=== PATIENT | male | born 1985 ===

== ENCOUNTER 2020-03-02 12:10 | Outpatient (REF) | payer MEDICAID, SELFPAY | END 2020-03-02 12:11 | disposition home or self-care (01) | LOC: HO.LAB 12:10 | PROVIDERS: Visit Provider Internal Medicine | DX: Z20.828 Contact with and (suspected) exposure to other viral communicable diseases (principal) | CPT/HCPCS: C9803; U0003 ==

== ENCOUNTER 2020-03-03 01:32 | Emergency (ER) | payer MEDICAID, SELFPAY ==
--- NOTE | 2020-03-03 02:10 | ED_ITS ---
HPI - General Adult General Chief complaint: General Medical Stated complaint: ?Fever Time Seen by Provider: 03/03/20 02:09 Source: patient Mode of arrival: ambulatory Limitations: no limitations History of Present Illness HPI narrative: This is a 35-year-old male who presents with complaints of having sprayed alcohol around his house to clean up and then states that it was irritating his lungs and he had a sort. Of dry cough that has since resolved but then felt that he had an elevated temperature last night and took some Tylenol prior to presenting here in the emergency department. On review of documentation patient was swabbed here yesterday for COVID-19. He is concerned that he has neighbors on either side of him. Otherwise, he denies any other acute complaints. Related Data Home Medications Medication Instructions Recorded Confirmed No Known Home Meds 03/03/20 03/03/20 Allergies Allergy/AdvReac Type Severity Reaction Status Date / Time No Known Allergies Allergy Verified 03/03/20 01:39 Review of Systems Review of Systems: Pertinent positives and negatives as stated in HPI 10 point review of systems otherwise negative. PMFSH Past Medical History Source: nursing notes reviewed Social History Social History Alcohol intake: never Smoked in Last 30 Days: No Use of substances other than those prescribed or required for medical reasons: No Advance Directives: No Physical Exam Vital Signs: Vital Signs: Last Vital Signs Temp 99.7 F 03/03/20 02:18 Pulse 96 03/03/20 02:18 Resp 18 03/03/20 02:18 BP 148/84 H 03/03/20 02:18 Pulse Ox 95 03/03/20 02:18 Body Mass Index 32.3 VITAL SIGNS: Reviewed. GENERAL: Well developed, well nourished, in no acute distress. HEAD: Normocephalic/atraumatic, EYES: PERRLA, EOMI intact without pain, no nystagmus/pallor/icterus noted EARS: Ext canals without abnormality, TMs non-bulging and non-erythematous NOSE: Nares patent bilateral OROPHARYNX: no oral lesions noted, posterior pharynx clear and non-erythematous without noted tonsillar enlargement/erythema/exudates NECK: Supple, no adenopathy LUNGS: Normal breath sounds. No adventitious sounds or accessory muscle use. SpO2<95> CARDIOVASCULAR: Regular rate and rhythm without noted murmurs, no JVD or lower extremity edema. ABDOMEN: Soft, non-tender, non-distended with bowel sounds. No rigidity. No guarding. No palpable masses or hernias noted MUSCULOSKELETAL: No tenderness, deformities, or effusions noted on gross inspection. EXTREMITIES: No cyanosis, clubbing or edema. SKIN: Inspection of the skin reveals no rashes, ulcerations, jaundice, pallor, or petechiae. NEUROLOGIC: Alert and oriented x 4. Strength and sensation to light touch were grossly intact x 4. Course Course Course Narrative: This is a 35-year-old male with history and clinical presentation consistent with viral syndrome and awaiting COVID-19 testing. Patient is not complaining of shortness of breath and is not noted to be hypoxic or currently febrile. He was encouraged to return home remain self quarantined and that he would be called with his COVID-19 results. He was also counseled on cutting people's hair within his home. Discharge Plan Discharge Clinical Impression: Viral syndrome Patient Disposition: Home, Self-Care Instructions: Viral Syndrome (ED) Additional Instructions: 1. DEBE PERMANECER EN CUARENTENA HASTA QUE LE LLAMEN CON LOS RESULTADOS DE SHARMA PRUEBA COVID-19. 2. TYLENOL 1000 MG, ORALMENTE, CADA 6 HORAS SEG?N SE NECESITE PARA TEMPERATURAS MAYORES DE 100.4 O NANCY CORPORALES. NO EXCEDA 4000 MG DENTRO DE LAS 24 HORAS. 3. IBUPROFEN 400 MG, ORALMENTE CON LECHE O ALIMENTOS, CADA 6 HORAS SEG?N SE NECESITE PARA TEMPERATURAS MAYORES A 100.4 O NANCY CORPORALES. EL PACIENTE Y / O LA MERRICK RECONOCEN LA COMPRENSI?N DE LOS RESULTADOS (SEG?N SEA APLICABLE), EL DIAGN?STICO, EL PLAN DE TRATAMIENTO, LA NECESIDAD DE SEGUIMIENTO Y LOS S?NTOMAS QUE DEBER?AN IMPONER UN REGRESO A LA PERCY DE URGENCIAS. Prescriptions: No Action No Known Home Meds RF: 0 Referrals: Physician,Unknown [Primary Care Provider] - 2 days Print Language: Maori
[2020-03-03 02:18] VITALS: BP 148/84; PULSE 96; RESP 18; TEMP 37.6; O2SAT 95; BMI 32.3
== END 2020-03-03 02:40 | disposition home or self-care (01) ==
PROVIDERS: Emergency Provider Student in an Organized Health Care Education/Training Program
DX: B34.9 Viral infection, unspecified (principal); R50.9 Fever, unspecified; Z20.828 Contact with and (suspected) exposure to other viral communicable diseases
CPT/HCPCS: 99283; 99284

== ENCOUNTER 2020-03-23 10:17 | Emergency (ER) | payer MEDICAID, SELFPAY ==
[2020-03-23 10:33] VITALS: BP 139/87; PULSE 94; RESP 17; TEMP 37.3; O2SAT 96; BMI 39.4
[2020-03-23 10:42] VITALS: BP 136/87; PULSE 96; RESP 17; TEMP 37.3; O2SAT 96
--- NOTE | 2020-03-23 11:48 | ECG_ITS ---
Test Reason : MEDICAL CLEARANCE Blood Pressure : / mmHG Vent. Rate : 089 BPM Atrial Rate : 089 BPM P-R Int : 146 ms QRS Dur : 086 ms QT Int : 360 ms P-R-T Axes : 070 067 056 degrees QTc Int : 438 ms Normal sinus rhythm with sinus arrhythmia Possible Left atrial enlargement Borderline ECG When compared to the previous EKG of No significant changes seen Referred By: Judi Mills Electronically Signed By:Guilherme Guardado
--- NOTE | 2020-03-23 11:49 | CT_ITS ---
EXAMINATION: CT HEAD WITHOUT CONTRAST CLINICAL INFORMATION: Neuro symptoms post Covid COMPARISON: Previous head CT August 2010 TECHNIQUE: Contiguous axial imaging was performed from the skull base to vertex without intravenous administration of contrast. This CT examination was performed using dose optimization techniques as appropriate, variously including the following: *Automated exposure control *Adjustment of mA and/or kV according to patient size (this includes techniques or standardized protocols for targeted exams where dose is matched to indication/reason for exam; i.e. extremities or head) *Use of iterative reconstruction technique DLP: 865 mGy-cm FINDINGS: There is no evidence of acute intracranial hemorrhage or territorial infarction. No abnormal mass effect or midline shift is seen. Phillips to white matter differentiation is well preserved. No extra-axial fluid collections are identified. The ventricles are normal in size. There is no abnormal attenuation within the brain parenchyma. No skull fracture is seen. There is increased soft tissue opacification of the right mastoid air cells and middle ear suggestive of otomastoiditis. This is similar to 2011 exam. There is a stable lesion in the right sphenoid sinus probably representing fibrous dysplasia also unchanged from 2011. Left mastoid air cells and middle ears are clear. There is mild inflammatory change in the bilateral ethmoid sinuses. There is a small polyp or cyst in the right maxillary sinus. CT/CT head/brain wo con IMPRESSION: No acute findings. 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
--- NOTE | 2020-03-23 11:49 | XR_ITS ---
EXAMINATION: XR CHEST CLINICAL INFORMATION: Neuro symptoms post Covid COMPARISON: Previous chest x-ray most recent March 2018 TECHNIQUE: 2 views of the chest were obtained. FINDINGS: The cardiac and mediastinal contours are stable. There are increased linear markings seen in the bilateral upper lobes. This is similar to previous chest x-ray most recent March 2018 and probably represents scarring. The lungs are otherwise clear. There is no pleural effusion or pneumothorax. Bony structures are unremarkable. XR/XR chest 2V IMPRESSION: Increased linear markings in the bilateral upper lobes stable from previous exams probably representing scarring. No evidence for acute disease in the chest.
[2020-03-23 12:23] LABS: Glucose Urine UA NEG (NEG); Leukocyte Esterase Urine NEG (NEG); Nitrite Urine NEG (NEG); PH 5.5 (5.0-8.0); Specific Gravity - Urine >= 1.030 (1.005-1.025); Urine Blood NEG (NEG); Urine Ketones 15 MG/DL (NEG); Urine Protein 1+ MG/DL (NEG-TRACE)
[2020-03-23 12:25] LABS: Appearance Urine TURBID; Color Urine ORANGE
[2020-03-23 12:39] LABS: Mucus Urine 1+ /LPF; RBC Urine 0 /HPF (0); WBC Urine 0 /HPF (0-4)
[2020-03-23 12:40] LABS: Amorphous Sediment Urine 3+ /LPF
[2020-03-23 12:42] LABS: Amphetamine Screen Urine Not Detected (Not Detect); Barbiturates, Urine Not Detected (Not Detect); Benzodiazepines Screen Urine Not Detected (Not Detect); Cannabinoid Screen Urine Not Detected (Not Detect); Cocaine Screen Urine Not Detected (Not Detect); Opiate Screen Urine Not Detected (Not Detect); Phencyclidine Screen Urine Not Detected (Not Detect)
[2020-03-23 12:49] LABS: MANUAL DIFF FLAG NO
[2020-03-23] MEDS: diphenhydrAMINE HCL 25 MG TABLET 50 MG PO (12:53)
[2020-03-23 12:54] LABS: Basophils Percent Auto 0.2 % (0-2); Eosinophils Absolute Auto 0.1 X10*3/uL (0.0-0.4); Hematocrit 43.1 % (42-52); Hemoglobin 14.7 g/dl (14.0-18.0); Imm Gran Abs Auto 0.03 X10*3/uL (0.00-0.03); Imm Gran Pct Auto 0.3 % (0.0-0.4); Lymphocytes Absolute Auto 1.5 X10*3/uL (1.2-4.9); Mean Corpuscular HGB Conc 34.1 g/dl (31.0-36.0); Mean Corpuscular Volume 93.7 fL (80-98); Mean Platelet Volume 11.2 fL (9.4-12.4); Monocytes Absolute Auto 0.9 X10*3/uL (0.1-1.2); Monocytes Percent Auto 9.4 % (2-11); Neutrophils Absolute Auto 6.8 X10*3/uL (2.0-8.3); Neutrophils Percent Auto 73.1 % (45-73); Platelet Count 209 X10*3/uL (160-400); Red Cell Distribution Width 12.7 % (11.0-16.0); White Blood Count 9.3 X10*3/uL (4.8-10.8)
--- NOTE | 2020-03-23 13:02 | PC.NURSE ---
THIS RN SPOKE W/ [facility] WHO VERIFIED PT HAS NOT FILLED ANY PRESCRIPTIONS SINCE 07/2019
[2020-03-23 13:04] LABS: Influenza A PCR NEGATIVE (Negative); Influenza B PCR NEGATIVE (Negative); Resp Syncy Virus RNA Qual PCR NEGATIVE (Negative); SARS COV2 PCR INHOUSE POSITIVE (Negative)
[2020-03-23 13:08] LABS: INTERNATIONAL NORM RATIO 1.3 (0.9-1.1); Prothrombin Time 14.9 SEC (10.8-13.0)
[2020-03-23 13:19] LABS: Ethanol < 10 mg/dL
[2020-03-23 13:20] LABS: Lactate Dehydrogenase 190 U/L (118-273)
[2020-03-23 13:23] LABS: Alanine Aminotransferase 45 U/L (0-40); Albumin Level 4.2 g/dL (3.5-5.0); Alkaline Phosphatase 62 U/L (39-117); Anion Gap 13 (12-20); Aspartate Amino Transferase 33 U/L (5-37); Bilirubin Direct 0.5 mg/dL (0.0-0.5); Bilirubin Total 1.7 mg/dL (0.0-1.0); Blood Urea Nitrogen 11 mg/dL (9-16); Calcium 9.3 mg/dL (8.4-10.2); Carbon Dioxide 29 mmol/L (22-29); Chloride 103 mmol/L (96-108); Creatinine Clr Calc Pharmacy 166.1; Estimated Glomerular Filt Rate > 60; Glucose Random 80 mg/dL (60-115); Magnesium 2.1 mg/dL (1.6-2.6); Potassium 3.9 mmol/l (3.3-5.1); Sodium 141 mmol/L (135-145); Total Protein 6.9 g/dL (6.5-8.0)
[2020-03-23 13:27] LABS: Troponin-I High Sensitivity 26.9 ng/L (<3.5-35.0)
[2020-03-23 13:42] LABS: Procalcitonin 0.02 ng/mL
[2020-03-23 13:43] LABS: Ferritin 849 ng/mL (20-250)
--- NOTE | 2020-03-23 14:44 | ED_ITS ---
HPI - Psych General Chief Complaint: Psychiatric Symptoms Stated Complaint: crisis Time Seen by Provider: 03/23/20 11:39 Source: patient Mode of arrival: ambulatory Limitations: language barrier (Irish-speaking) and other (catatonic) History of Present Illness HPI Narrative: 35yoM c PMHx of disorganized schizophrenia who has been COVID positive since 03/02/20 presenting to the ED via EMS after his mother called the ambulance due to he has been non med compliant for over 2 years and has been speaking a lot of rastafarian spiritual things that do not make sense. Patient arrived and he appears to try the sign language but he is not actually do an actual sign language he is kind of pointing to his head his mouth and his chest clenching his jaw then he intermittently will try to speak saying that he feels Rage he does not know why. Reports the spirits gotten him and God sent him. Reports over the past 2 weeks he has been taking Motrin and Tylenol at least 6 tablets daily for the COVID symptoms. Denies any injuries, recent travels, recent drug usage denies alcohol usage or any other symptoms complaints or concerns at this time. Denies any SI/HI or thoughts of self injury. Related Data Home Medications Medication Instructions Recorded Confirmed No Known Home Meds 03/03/20 03/03/20 Allergies Allergy/AdvReac Type Severity Reaction Status Date / Time No Known Allergies Allergy Verified 03/03/20 01:39 Review of Systems Review of Systems: Constitutional : No Fever, No Chills ENT/Mouth : No Ear Pain, No Nasal Congestion, No sore throat Eyes: No Eye Pain, No Swelling, No Redness Cardiovascular : + Chest Pain, No SOB Respiratory : No Cough, No Sputum, No Dyspnea Gastrointestinal : No ingestions, No Nausea, No Vomiting, No Diarrhea, No Hematochezia, No Melena Genitourinary : No Dysuria, No Urinary Frequency, No Hematuria Musculoskeletal : No Myalgias Skin : No Skin Lesions, No rash Neuro : No Weakness, No Numbness, No Paresthesias, No Dizziness, No Headache Psych : + Anxiety, + Depression, No SI, No No thoughts of self injury, No HI, + AVH, Heme/Lymph: No Lymphadenopathy Endocrine : No Polyuria, No Polydipsia Yes all other systems are reviewed and are negative [facility] Past Medical History Attestation statement: The following information was validated with the patient. Social History Social History Alcohol intake: unknown Smoking Status: Unknown if ever smoked Use of substances other than those prescribed or required for medical reasons: Unknown Advance Directives: No Advance Directives Information Provided: Yes Physical Exam Vital Signs: Vital Signs: Last Vital Signs Temp 99.2 F 03/23/20 15:23 Pulse 92 03/23/20 15:23 Resp 18 03/23/20 15:23 BP 125/67 03/23/20 15:23 Pulse Ox 94 03/23/20 15:23 Body Mass Index 39.4 vital signs have been reviewed as normal and appeared to be correct. Blood pressure normal. Heart rate normal. Respiration rate normal. Temperature normal. Oxygen saturation normal. Appearance: Alert. Oriented X3. No acute distress. Head: Normal external exam. Normocephalic. Atraumatic. No Donato signs noted. No raccoon eyes noted Eyes: PERRLA. EOMI. Conjunctiva and sclera normal. Eyelids normal. ENT: EAC normal. TM's Normal. Pharynx normal. Uvula midline. Moist mucous membra munir. No trismus noted. No drooling noted. No muffled voice noted. Neck: Normal inspection. Neck supple. FROM. No adenopathy. Thyroid Normal. No meningeal signs. No neck mass noted. CVS: Normal heart rate and rhythm. Heart sound normal. No murmurs noted. Pulses normal throughout. Respiratory: No respiratory distress. Painless inspiration. Breath sounds normal. No wheezes/rales/rhonchi noted. Chest nontender. No accessory muscle usage noted or decreased air movement noted. Abdomen: Soft and nontender. Bowel sounds normal in all 4 quadrants. No distention noted. No organomegaly noted. No visible injury noted. Back: No CVA tenderness. Full range of motion noted. Skin: Skin warm and dry. Normal skin color. Normal skin turgor. No rashes/lesions/lacerations noted. Extremities: No lower extremity edema. Extremities exhibit normal range of motion. Extremities nontender. Neuro: Oriented X 3. No motor deficit. No sensory deficit. Reflexes normal. Psych: Appearance grossly normal, well-kept, mental status normal, intermittently goes into a catatonic stage and tries to pretend to sign language and starts to clench his teeth and point to his chest and his head in his teeth. Speech is pressured. Movement otherwise normal. Patient is cooperative. Abnormal thought process. Abnormal thought content. Does not have good insight. I do not believe his judgment is good at this time. Speaking spiritual/rastafarian. Course Course Course Narrative: 35yoM c PMHx of disorganized schizophrenia who has been COVID positive since 03/02/20 presenting to the ED via EMS after his mother called the ambulance due to he has been non med compliant for over 2 years and has been sp eaking a lot of rastafarian spiritual things that do not make sense. - Mother Melissa would like to be Healthcare proxy her name is Melissa De Jesus at [phone] - Concern for ID vs CVA vs psychosis vs drug-induced psychosis - Plan: Labs, CT scan of brain, CXR, EKG provided 50 mg of Benadryl then re- evaluate Reevaluation(s) Reevaluation #1: - patient's ferritin level at 08:49. Total bilirubin 1.7. ALT 45. Total creatinine kinase 671. Troponin 26.9. Otherwise all other labs are within normal limits. When patient gave us a urine his urine was completely orange and appeared with sediment although on the patient's UA his urine appears orange with +1 protein and 15 ketones otherwise no evidence of UTI and no blood in the patient's urine therefore unknown cause of why the patient's urine is orange. - CT scan of brain revealed chronic changes no acute processes noted. EKG was normal sinus rhythm with sinus arrhythmia with left atrial enlargement otherwise no acute processes noted and similar when compared to prior EKG on 04/28/2019. Chest x-ray revealed increased linear markings and bilateral upper lobe stable from previous exams probably representing scarring no evidence for acute disease in the chest. - therefore will repeat a troponin awaiting for results at this time. Patient was placed on a Section 12 and will be an inpatient bed search. Patient and mother understand and agree plan. Time: 17:56 MDM - Psych Restraints Face to Face Assessment: Face to Face Assessment: Current Situation: After assessment of the patient, a review of the pertinent medical record and a discussion with nursing staff, I feel the patient requires a restrain interven tion. Reaction To: [] Medical Condition: [] Behavioral State: [] Continued Need: [] Medical Records Attestation: I reviewed the patient's medical records. Lab Data Attestation: I reviewed the patient's lab results. Result diagrams: 03/23/20 12:42 03/23/20 12:42 Labs: Lab Results 03/23/20 03/23/20 03/23/20 Range/Units 12:05 12:05 12:19 WBC (4.8-10.8) X10*3/uL RBC (4.60-5.80) X10*6/uL Hgb (14.0-18.0) g/dl Hct (42-52) % MCV (80-98) fL MCH (27.0-33.0) pg MCHC (31.0-36.0) g/dl RDW (11.0-16.0) % Plt Count (160-400) X10*3/uL MPV (9.4-12.4) fL Immature Gran % (Auto) (0.0-0.4) % Neut % (Auto) (45-73) % Lymph % (Auto) (20-40) % [place] % (Auto) (2-11) % Eos % (Auto) (0-4) % Baso % (Auto) (0-2) % Lymph # (Auto) (1.2-4.9) X10*3/uL [place] # (Auto) (0.1-1.2) X10*3/uL Eos # (Auto) (0.0-0.4) X10*3/uL Baso # (Auto) (0.0-0.2) X10*3/uL Abs Immat Gran (auto) (0.00-0.03) X10*3/uL Absolute Neuts (auto) (2.0-8.3) X10*3/uL Absolute Nucleated RBC (0.0-0.012) X10*3/uL Nucleated RBC % (auto) (0.0-0.2) /100WBC PT (10.8-13.0) SEC INR (0.9-1.1) Sodium (135-145) mmol/L Potassium (3.3-5.1) mmol/l Chloride (96-108) mmol/L Carbon Dioxide (22-29) mmol/L Anion Gap (12-20) BUN (9-16) mg/dL Creatinine (0.5-1.4) mg/dL Estim Creat Clear Calc Estimated GFR Random Glucose (60-115) mg/dL Calcium (8.4-10.2) mg/dL Magnesium (1.6-2.6) mg/dL Ferritin (20-250) ng/mL Total Bilirubin (0.0-1.0) mg/dL Direct Bilirubin (0.0-0.5) mg/dL AST (5-37) U/L ALT (0-40) U/L Alkaline Phosphatase (39-117) U/L Lactate Dehydrogenase (118-273) U/L Total Creatine Kinase (38-174) U/L Troponin I High Sens (<3.5-35.0) ng/L Total Protein (6.5-8.0) g/dL Albumin (3.5-5.0) g/dL Procalcitonin ng/mL Urine Color ORANGE Urine Appearance TURBID Urine pH 5.5 (5.0-8.0) Ur Specific [place] >= 1.030 H (1.005-1.025) Urine Protein 1+ H (NEG-TRACE) MG/DL Urine Glucose (UA) NEG (NEG) MG/DL Urine Ketones 15 (NEG) MG/DL Urine Blood NEG (NEG) Urine Nitrite NEG (NEG) Ur Leukocyte Esterase NEG (NEG) Urine RBC 0 (0) /HPF Urine WBC 0 (0-4) /HPF Ur Squamous Epith Cells NONE /LPF Amorphous Sediment 3+ /LPF Urine Bacteria NONE /LPF Urine Mucus 1+ /LPF Salicylates (15-30) mg/dL Urine Opiates Screen Not Detected (Not Detect) Acetaminophen (<30) mcg/mL Ur Barbiturates Screen Not Detected (Not Detect) Ur Phencyclidine Scrn Not Detected (Not Detect) Ur Amphetamines Screen Not Detected (Not Detect) U Benzodiazepines Scrn Not Detected (Not Detect) Urine Cocaine Screen Not Detected (Not Detect) U Marijuana (THC) Screen Not Detected (Not Detect) Ethyl Alcohol mg/dL Coronavirus (PCR) POSITIVE A (Negative) Influenza Type A (PCR) NEGATIVE (Negative) Influenza Type B (PCR) NEGATIVE (Negative) RSV RNA Qual (PCR) NEGATIVE (Negative) 03/23/20 03/23/20 03/23/20 Range/Units 12:42 12:42 12:42 WBC 9.3 (4.8-10.8) X10*3/uL RBC 4.60 (4.60-5.80) X10*6/uL Hgb 14.7 (14.0-18.0) g/dl Hct 43.1 (42-52) % MCV 93.7 (80-98) fL MCH 32.0 (27.0-33.0) pg MCHC 34.1 (31.0-36.0) g/dl RDW 12.7 (11.0-16.0) % Plt Count 209 (160-400) X10*3/uL MPV 11.2 (9.4-12.4) fL Immature Gran % (Auto) 0.3 (0.0-0.4) % Neut % (Auto) 73.1 H (45-73) % Lymph % (Auto) 16.0 L (20-40) % [place] % (Auto) 9.4 (2-11) % Eos % (Auto) 1.0 (0-4) % Baso % (Auto) 0.2 (0-2) % Lymph # (Auto) 1.5 (1.2-4.9) X10*3/uL [place] # (Auto) 0.9 (0.1-1.2) X10*3/uL Eos # (Auto) 0.1 (0.0-0.4) X10*3/uL Baso # (Auto) 0.0 (0.0-0.2) X10*3/uL Abs Immat Gran (auto) 0.03 (0.00-0.03) X10*3/uL Absolute Neuts (auto) 6.8 (2.0-8.3) X10*3/uL Absolute Nucleated RBC 0.000 (0.0-0.012) X10*3/uL Nucleated RBC % (auto) 0.0 (0.0-0.2) /100WBC PT 14.9 H (10.8-13.0) SEC INR 1.3 H (0.9-1.1) Sodium 141 (135-145) mmol/L Potassium 3.9 (3.3-5.1) mmol/l Chloride 103 (96-108) mmol/L Carbon Dioxide 29 (22-29) mmol/L Anion Gap 13 (12-20) BUN 11 (9-16) mg/dL Creatinine 0.83 (0.5-1.4) mg/dL Estim Creat Clear Calc 166.1 Estimated GFR > 60 Random Glucose 80 (60-115) mg/dL Calcium 9.3 (8.4-10.2) mg/dL Magnesium 2.1 (1.6-2.6) mg/dL Ferritin (20-250) ng/mL Total Bilirubin 1.7 H (0.0-1.0) mg/dL Direct Bilirubin 0.5 (0.0-0.5) mg/dL AST 33 (5-37) U/L ALT 45 H (0-40) U/L Alkaline Phosphatase 62 (39-117) U/L Lactate Dehydrogenase (118-273) U/L Total Creatine Kinase (38-174) U/L Troponin I High Sens (<3.5-35.0) ng/L Total Protein 6.9 (6.5-8.0) g/dL Albumin 4.2 (3.5-5.0) g/dL Procalcitonin ng/mL Urine Color Urine Appearance Urine pH (5.0-8.0) Ur Specific [place] (1.005-1.025) Urine Protein (NEG-TRACE) MG/DL Urine Glucose (UA) (NEG) MG/DL Urine Ketones (NEG) MG/DL Urine Blood (NEG) Urine Nitrite (NEG) Ur Leukocyte Esterase (NEG) Urine RBC (0) /HPF Urine WBC (0-4) /HPF Ur Squamous Epith Cells /LPF Amorphous Sediment /LPF Urine Bacteria /LPF Urine Mucus /LPF Salicylates (15-30) mg/dL Urine Opiates Screen (Not Detect) Acetaminophen (<30) mcg/mL Ur Barbiturates Screen (Not Detect) Ur Phencyclidine Scrn (Not Detect) Ur Amphetamines Screen (Not Detect) U Benzodiazepines Scrn (Not Detect) Urine Cocaine Screen (Not Detect) U Marijuana (THC) Screen (Not Detect) Ethyl Alcohol mg/dL Coronavirus (PCR) (Negative) Influenza Type A (PCR) (Negative) Influenza Type B (PCR) (Negative) RSV RNA Qual (PCR) (Negative) 03/23/20 03/23/2020 Range/Units 12:42 12:42 12:42 WBC (4.8-10.8) X10*3/uL RBC (4.60-5.80) X10*6/uL Hgb (14.0-18.0) g/dl Hct (42-52) % MCV (80-98) fL MCH (27.0-33.0) pg MCHC (31.0-36.0) g/dl RDW (11.0-16.0) % Plt Count (160-400) X10*3/uL MPV (9.4-12.4) fL Immature Gran % (Auto) (0.0-0.4) % Neut % (Auto) (45-73) % Lymph % (Auto) (20-40) % [place] % (Auto) (2-11) % Eos % (Auto) (0-4) % Baso % (Auto) (0-2) % Lymph # (Auto) (1.2-4.9) X10*3/uL [place] # (Auto) (0.1-1.2) X10*3/uL Eos # (Auto) (0.0-0.4) X10*3/uL Baso # (Auto) (0.0-0.2) X10*3/uL Abs Immat Gran (auto) (0.00-0.03) X10*3/uL Absolute Neuts (auto) (2.0-8.3) X10*3/uL Absolute Nucleated RBC (0.0-0.012) X10*3/uL Nucleated RBC % (auto) (0.0-0.2) /100WBC PT (10.8-13.0) SEC INR (0.9-1.1) Sodium (135-145) mmol/L Potassium (3.3-5.1) mmol/l Chloride (96-108) mmol/L Carbon Dioxide (22-29) mmol/L Anion Gap (12-20) BUN (9-16) mg/dL Creatinine (0.5-1.4) mg/dL Estim Creat Clear Calc Estimated GFR Random Glucose (60-115) mg/dL Calcium (8.4-10.2) mg/dL Magnesium (1.6-2.6) mg/dL Ferritin 849 H (20-250) ng/mL Total Bilirubin (0.0-1.0) mg/dL Direct Bilirubin (0.0-0.5) mg/dL AST (5-37) U/L ALT (0-40) U/L Alkaline Phosphatase (39-117) U/L Lactate Dehydrogenase 190 (118-273) U/L Total Creatine Kinase (38-174) U/L Troponin I High Sens 26.9 (<3.5-35.0) ng/L Total Protein (6.5-8.0) g/dL Albumin (3.5-5.0) g/dL Procalcitonin 0.02 ng/mL Urine Color Urine Appearance Urine pH (5.0-8.0) Ur Specific [place] (1.005-1.025) Urine Protein (NEG-TRACE) MG/DL Urine Glucose (UA) (NEG) MG/DL Urine Ketones (NEG) MG/DL Urine Blood (NEG) Urine Nitrite (NEG) Ur Leukocyte Esterase (NEG) Urine RBC (0) /HPF Urine WBC (0-4) /HPF Ur Squamous Epith Cells /LPF Amorphous Sediment /LPF Urine Bacteria /LPF Urine Mucus /LPF Salicylates (15-30) mg/dL Urine Opiates Screen (Not Detect) Acetaminophen (<30) mcg/mL Ur Barbiturates Screen (Not Detect) Ur Phencyclidine Scrn (Not Detect) Ur Amphetamines Screen (Not Detect) U Benzodiazepines Scrn (Not Detect) Urine Cocaine Screen (Not Detect) U Marijuana (THC) Screen (Not Detect) Ethyl Alcohol mg/dL Coronavirus (PCR) (Negative) Influenza Type A (PCR) (Negative) Influenza Type B (PCR) (Negative) RSV RNA Qual (PCR) (Negative) 03/23/20 03/23/20 03/23/20 Range/Units 12:42 15:55 15:55 WBC (4.8-10.8) X10*3/uL RBC (4.60-5.80) X10*6/uL Hgb (14.0-18.0) g/dl Hct (42-52) % MCV (80-98) fL MCH (27.0-33.0) pg MCHC (31.0-36.0) g/dl RDW (11.0-16.0) % Plt Count (160-400) X10*3/uL MPV (9.4-12.4) fL Immature Gran % (Auto) (0.0-0.4) % Neut % (Auto) (45-73) % Lymph % (Auto) (20-40) % [place] % (Auto) (2-11) % Eos % (Auto) (0-4) % Baso % (Auto) (0-2) % Lymph # (Auto) (1.2-4.9) X10*3/uL [place] # (Auto) (0.1-1.2) X10*3/uL Eos # (Auto) (0.0-0.4) X10*3/uL Baso # (Auto) (0.0-0.2) X10*3/uL Abs Immat Gran (auto) (0.00-0.03) X10*3/uL Absolute Neuts (auto) (2.0-8.3) X10*3/uL Absolute Nucleated RBC (0.0-0.012) X10*3/uL Nucleated RBC % (auto) (0.0-0.2) /100WBC PT (10.8-13.0) SEC INR (0.9-1.1) Sodium (135-145) mmol/L Potassium (3.3-5.1) mmol/l Chloride (96-108) mmol/L Carbon Dioxide (22-29) mmol/L Anion Gap (12-20) BUN (9-16) mg/dL Creatinine (0.5-1.4) mg/dL Estim Creat Clear Calc Estimated GFR Random Glucose (60-115) mg/dL Calcium (8.4-10.2) mg/dL Magnesium (1.6-2.6) mg/dL Ferritin (20-250) ng/mL Total Bilirubin (0.0-1.0) mg/dL Direct Bilirubin (0.0-0.5) mg/dL AST (5-37) U/L ALT (0-40) U/L Alkaline Phosphatase (39-117) U/L Lactate Dehydrogenase (118-273) U/L Total Creatine Kinase 671 H (38-174) U/L Troponin I High Sens (<3.5-35.0) ng/L Total Protein (6.5-8.0) g/dL Albumin (3.5-5.0) g/dL Procalcitonin ng/mL Urine Color Urine Appearance Urine pH (5.0-8.0) Ur Specific [place] (1.005-1.025) Urine Protein (NEG-TRACE) MG/DL Urine Glucose (UA) (NEG) MG/DL Urine Ketones (NEG) MG/DL Urine Blood (NEG) Urine Nitrite (NEG) Ur Leukocyte Esterase (NEG) Urine RBC (0) /HPF Urine WBC (0-4) /HPF Ur Squamous Epith Cells /LPF Amorphous Sediment /LPF Urine Bacteria /LPF Urine Mucus /LPF Salicylates < 5.0 L (15-30) mg/dL Urine Opiates Screen (Not Detect) Acetaminophen < 1 (<30) mcg/mL Ur Barbiturates Screen (Not Detect) Ur Phencyclidine Scrn (Not Detect) Ur Amphetamines Screen (Not Detect) U Benzodiazepines Scrn (Not Detect) Urine Cocaine Screen (Not Detect) U Marijuana (THC) Screen (Not Detect) Ethyl Alcohol < 10 mg/dL Coronavirus (PCR) (Negative) Influenza Type A (PCR) (Negative) Influenza Type B (PCR) (Negative) RSV RNA Qual (PCR) (Negative) Imaging Data Chest x-ray: Attestation: I personally reviewed and interpreted this imaging study as follows: Radiologist's impression: IMPRESSION: Increased linear markings in the bilateral upper lobes stable from previous exams probably representing scarring. No evidence for acute disease in the chest. CT scan - head: Attestation: I personally reviewed and interpreted this imaging study as follows: Radiologist's impression: IMPRESSION: No acute findings. 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 ECG Data Attestation: I personally reviewed and interpreted this ECG as follows: ECG interpretation date: 03/23/20 ECG interpretation time: 12:27 Interpretation: Normal sinus rhythm with sinus arrhythmia with left atrial enlargement with normal QRS duration normal QT/QTC interval. No acute ischemic changes and similar when compared to prior EKG on 04/28/2019. Discharge Plan Discharge Clinical Impression: Acute psychosis, COVID-19, Elevated troponin Prescriptions: No Action No Known Home Meds RF: 0
[2020-03-23 15:23] VITALS: BP 125/67; PULSE 92; RESP 18; TEMP 37.3; O2SAT 94
[2020-03-23 16:24] LABS: Acetaminophen LAB < 1 mcg/mL (<30); Salicylate < 5.0 mg/dL (15-30)
--- NOTE | 2020-03-23 16:34 | PC.NURSE ---
Pt resting, calm and cooperative, denies complaints. PT mother - Melissaquinn De Jesus [phone]
--- NOTE | 2020-03-23 17:02 | PC.NURSE ---
MONY faxed and called.
[2020-03-23 17:58] LABS: Troponin-I High Sensitivity 25.7 ng/L (<3.5-35.0)
--- NOTE | 2020-03-23 18:28 | PC.NURSE ---
Pt's mother is requesting that PT not be discharged without calling her, she will be his ride home if cleared. She states he has been off his medications for over a year and has not been doing well, she states he has been decompensating and doesn't make sense when he speaks with her. When speaking with PT he alternates between speaking kazakh, turkmen and sign language. Pt calm and cooperative, denies complaints.
--- NOTE | 2020-03-23 22:58 | PC.NURSE ---
ROSA MARIAN completed the assessment decided initially with plan to discharge in the morning because of ride issue. Provider not in agreement with plan, disposition now changed to reevaluation the morning. Patient made aware. Patient communicates need weel, no distress reported, will continue to monitor.
--- NOTE | 2020-03-24 07:17 | PC.NURSE ---
Report received from CHARIS Tavarez. Pt awake, alert, pleasant. No concerns reported.
[2020-03-24 08:00] VITALS: RESP 18
--- NOTE | 2020-03-24 09:42 | PC.NURSE ---
Pt awake, alert. Affect even. Pt pleasant. Carriage Operator called for full assessment.
[2020-03-24 10:00] VITALS: RESP 20
--- NOTE | 2020-03-24 10:06 | PC.NURSE ---
Pt evaluated w/ educational sign language interpreter. Pt alert, states he is feeling relaxed today, does not admit to SI, or AH or VH. Pt updated re: crisis to come in to re-evaluate. Pt states he is feeling 'relaxed,' has been cooperative w/ mask wearing, staying in room, and watching television.
--- NOTE | 2020-03-24 10:08 | MHC.CARE ---
T/w reached out to [facility] to advocate for pt who was reported to be awaiting re-evaluation by Sulma who has already seen pt in the community and [place] [facility] [place] Per Aydee Sulma is aware pt will need to be re-seen and will send a clinician when they can.
--- NOTE | 2020-03-24 10:12 | PC.NURSE ---
Provider in to evaluate, [facility] called and said they will be here within the hour.
[2020-03-24 10:33] VITALS: BP 139/88; PULSE 81; RESP 20; TEMP 37.1
--- NOTE | 2020-03-24 11:41 | PC.NURSE ---
Pt praying at bedside earlier, now in room, speaking w/ [facility] on telephone.
[2020-03-24 12:00] VITALS: RESP 18
--- NOTE | 2020-03-24 12:57 | MHC.CM.ED ---
Received case management consult from OMAR Lau. Patient was pending [facility] eval. Patient's mother was interested in completing HCP. However, patient was discharged prior to being able to be seen by case management.
== END 2020-03-24 12:48 | disposition home or self-care (01) ==
PROVIDERS: Physician Assistant Medical; Emergency Provider Emergency Medicine Emergency Medical Services
DX: F23 Brief psychotic disorder (principal); U07.1 COVID-19; R77.8 Other specified abnormalities of plasma proteins; F20.1 Disorganized schizophrenia; Z91.14 Patient's other noncompliance with medication regimen
CPT/HCPCS: 0241U; 36415; 70450; 71046; 80048; 80076; 80307; 80320; 81001; 82550; 82728; 83615; 83735; 84145; 84484; 85025; 85610; 93005; 99285; G0480; Q0163

== ENCOUNTER 2022-04-09 17:36 | Emergency (ER) | payer MEDICAID, SELFPAY ==
[2022-04-09 18:02] VITALS: BP 126/64; PULSE 60; RESP 18; TEMP 36.8; O2SAT 98; BMI 31.0
--- NOTE | 2022-04-09 18:02 | ED_ITS ---
HPI - Male Genitourinary General Chief complaint: General Medical Stated complaint: rectal pain Related Data Previous Rx's Medication Instructions Recorded hydrocortisone-pramoxine 2.5 %-1 % 1 appl [place] QID PRN hemorrhoids #30 04/10/22 rectal cream (Analpram-HC) grams hydrocortisone-pramoxine 2.5 %-1 % 1 appl [place] QID PRN hemorroids #30 04/10/22 rectal cream (Analpram-HC) grams lidocaine 5 %-phenylephrine 0.25 1 appl topical BID #28 grams 04/10/22 %-glycern 14.4 %-petrolatm 15 % cream (Preparation H Rapid Relief-Lidocaine) lidocaine 5 %-phenylephrine 0.25 1 appl topical DAILY #28 grams 04/10/22 %-glycern 14.4 %-petrolatm 15 % cream (Preparation H Rapid Relief-Lidocaine) Allergies Allergy/AdvReac Type Severity Reaction Status Date / Time No Known Allergies Allergy Verified 04/10/22 10:42 [facility] Social History Social History Alcohol intake: unknown Advance Directives: No Advance Directives Information Provided: Yes Physical Exam Vital Signs: Vital Signs: Last Vital Signs Temp 98.3 F 04/09/22 18:02 Pulse 60 04/09/22 18:02 Resp 18 04/09/22 18:02 BP 126/64 04/09/22 18:02 Pulse Ox 98 04/09/22 18:02 O2 Del Method 04/09/22 18:02 BMI result Body Mass Index 31.0 Course Course Course Narrative: RME--37 yo w/pmhx hemorrhoids, c/o rectal pain x few days. Admits feels a lump. denies bleeding, abdominal pain, N/V, constipation Area not evaluated in triage, will be deferred to main ED provider Discharge Plan Discharge Clinical Impression: Rectal pain Patient Disposition: Elopement Prescriptions: No Action Preparation H Rapid Rlf-Lidocn 5-0.25-14.4-15 % cream 1 appl topical BID Qty: 28 0RF hydrocortisone-pramoxine [Analpram-HC] 2.5-1 % cream 1 appl [place] QID PRN (Reason: hemorroids) Qty: 30 0RF Preparation H Rapid Rlf-Lidocn 5-0.25-14.4-15 % cream 1 appl topical DAILY Qty: 28 0RF hydrocortisone-pramoxine [Analpram-HC] 2.5-1 % cream 1 appl [place] QID PRN (Reason: hemorrhoids) Qty: 30 0RF Interventions: ED Discharge Assessment Last Done: 04/09/22 19:50 Discharge Date/Time: 04/09/22 19:52
== END 2022-04-09 19:52 | disposition left against medical advice (07) ==
PROVIDERS: Emergency Provider Emergency Medicine
DX: K62.89 Other specified diseases of anus and rectum (principal)
CPT/HCPCS: 99282

== ENCOUNTER 2022-04-10 10:32 | Emergency (ER) | payer MEDICAID, SELFPAY ==
[2022-04-10 10:33] VITALS: BP 129/76; PULSE 76; RESP 18; TEMP 36.1; O2SAT 95; BMI 29.7
--- NOTE | 2022-04-10 12:16 | ED.GENADULT ---
HPI - General Adult General Chief complaint: General Medical Stated complaint: rectal pain Time Seen by Provider: 04/10/22 12:11 Related Data Previous Rx's Medication Instructions Recorded hydrocortisone-pramoxine 2.5 %-1 % 1 appl [place] QID PRN hemorroids #30 04/10/22 rectal cream (Analpram-HC) grams lidocaine 5 %-phenylephrine 0.25 1 appl topical BID #28 grams 04/10/22 %-glycern 14.4 %-petrolatm 15 % cream (Preparation H Rapid Relief-Lidocaine) Allergies Allergy/AdvReac Type Severity Reaction Status Date / Time No Known Allergies Allergy Verified 04/10/22 10:42 [facility] Social History Social History Alcohol intake: unknown Advance Directives: No Advance Directives Information Provided: Yes Physical Exam ED Vital Signs: Vital Signs - 24 hr 04/10/22 10:33 Temperature 97.0 F Pulse Rate 76 Respiratory Rate 18 Blood Pressure 129/76 Pulse Oximetry 95 Oxygen Delivery Method Room Air BMI result Body Mass Index 29.7 Discharge Plan Discharge Clinical Impression: Acute hemorrhoid Patient Disposition: Home, Self-Care Instructions: Hemorrhoids (ED), Sitz Bath (DC) Additional Instructions: Please use the prescribed medications. You need to have have soft stools. If you have any other concerns please return to the ED. Prescriptions: New Preparation H Rapid Rlf-Lidocn 5-0.25-14.4-15 % cream 1 appl topical BID Qty: 28 0RF hydrocortisone-pramoxine [Analpram-HC] 2.5-1 % cream 1 appl [place] QID PRN (Reason: hemorroids) Qty: 30 0RF
== END 2022-04-10 12:47 | disposition home or self-care (01) ==
PROVIDERS: Emergency Provider Student in an Organized Health Care Education/Training Program; PCP Orthopaedic Surgery
DX: K64.9 Unspecified hemorrhoids (principal)
CPT/HCPCS: 99281; 99283

== ENCOUNTER 2023-01-24 02:43 | Emergency (ER) | payer MEDICAID, SELFPAY ==
--- NOTE | ~2023-01-24 | XR_ITS ---
EXAMINATION: XR CHEST CLINICAL INFORMATION: Cough COMPARISON: 03/23/2020 TECHNIQUE: Frontal view of the chest was obtained. FINDINGS: Lung volumes are symmetric. There are redemonstrated streaky opacities in the bilateral upper lungs which are similar to prior and suspicious for scarring. No convincing acute consolidation. No evidence of pneumothorax, pleural effusion, or pulmonary edema. The cardiomediastinal contour is unremarkable. No acute osseous findings are seen. XR/XR chest 1V IMPRESSION: No convincing acute findings. Redemonstrated streaky opacities in the upper lungs, suspicious for scarring.
[2023-01-24 02:50] VITALS: BP 138/90; PULSE 85; O2SAT 96
[2023-01-24 02:54] VITALS: BP 139/74; PULSE 84; RESP 16; TEMP 36.9; O2SAT 99
[2023-01-24 03:17] VITALS: BMI 34.3
[2023-01-24 03:25] VITALS: O2SAT 99
[2023-01-24 04:06] LABS: COVID-19 Test Negative (Negative); IDNOW Serial# 08D9AD1C; IDNOW Serial# BCCEAD1C; Influenza A Negative (Negative); Influenza B2 Negative (Negative)
--- NOTE | 2023-01-24 05:53 | PC.NURSE ---
Pt BIBA for dry cough that started a couple hours ago. Pt in bed, eyes closed, breaths even and unlabored. Denies pain, fever, or SOB.
--- NOTE | 2023-01-24 06:49 | ED_ITS ---
HPI - General Adult General Chief complaint: Upper Respiratory Symptoms Stated complaint: MENTAL HEALTH ISSUE ,SSO,HPD ON SCENE Time Seen by Provider: 01/24/23 06:48 Source: patient Mode of arrival: ambulatory Limitations: no limitations History of Present Illness HPI narrative: 37 yo male with history of schizophrenia presents to the ER via EMS for evaluation of mental health issue and an acute cough that started a few hours ago. Patient reports that last night he was at his uncle's house when he came across 2 police officers and started talking about his challenges with losing his home recently. He states his lease ran out. He is stressed about having a place to live. He has a car but needs to insure it. He denies depresion and states he is just stressed. He does not want to live with his uncle. He denies any SI or HI and that he loves himself too much. He denies drug or alcohol use. He states he has had a dry cough for the last few hours. No fever, chills, chest pain or SOB. No fever or chills. No known sick contacts. MD complaint: cough and life stressors Associated symptoms: denies other symptoms Treatments prior to arrival: none Related Data Previous Rx's Medication Instructions Recorded hydrocortisone-pramoxine 2.5 %-1 % 1 appl VA QID PRN hemorrhoids #30 04/10/22 rectal cream (Analpram-HC) grams hydrocortisone-pramoxine 2.5 %-1 % 1 appl VA QID PRN hemorroids #30 04/10/22 rectal cream (Analpram-HC) grams lidocaine 5 %-phenylephrine 0.25 1 appl topical BID #28 grams 04/10/22 %-glycern 14.4 %-petrolatm 15 % cream (Preparation H Rapid Relief-Lidocaine) lidocaine 5 %-phenylephrine 0.25 1 appl topical DAILY #28 grams 04/10/22 %-glycern 14.4 %-petrolatm 15 % cream (Preparation H Rapid Relief-Lidocaine) Allergies Allergy/AdvReac Type Severity Reaction Status Date / Time No Known Allergies Allergy Verified 01/24/23 03:17 Review of Systems Review of Systems: Yes all other systems are reviewed and are negative [facility] Social History Social History Alcohol intake: never Smoked in Last 30 Days: No Use of substances other than those prescribed or required for medical reasons: No Advance Directives: No Advance Directives Information Provided: Yes Physical Exam ED Vital Signs: Vital Signs - 24 hr 01/24/23 02:54 01/24/23 03:25 Temperature 98.5 F Pulse Rate 84 Respiratory Rate 16 Blood Pressure 139/74 Pulse Oximetry 99 99 Oxygen Delivery Method Room Air Room Air BMI result Body Mass Index 34.3 Appearance: Alert. Oriented X3. No acute distress. Well kempt Head: normocephalic, atraumatic. Eyes: Pupils equal, round and reactive to light. ENT: Pharynx normal. No tonsillar swelling or exudate. Neck: Normal inspection. Neck supple. CVS: Normal heart rate and rhythm. Pulses normal. Respiratory: No respiratory distress. Breath sounds normal. Abdomen: Soft and nontender. +BS x4 Skin: Skin warm and dry. Normal skin color. Normal skin turgor. No rashes. Extremities: No lower extremity edema. No joint swelling. Neuro/psych: Oriented X 3. No motor deficit. No sensory deficit. CN II-XII intact. Normal speech and cognition. No SI or HI, makes eye contact appropriately. Appropriate thought process. Mood is okay. Medical Decision Making Medical Decision Making [facility] Narrative: 37 yo schizophrenia male presenting with cough and increased stress in his life with recently losing his housing. He is well kempt and well spoken. No SI or HI, denies depression or anxiety and just reports his housing and car insurance issues are making him stressed. He is appropriate on exam. Not in crisis. No SI or HI. He was given list of temporary housing and shelters in the area. He states he would like to be discharged. He ate and is feeling better. His CXR has some scarring but no PNA. COVID and Flu tests negative. Lungs CTAB. Comfortable w/ discharge. Differential Diagnosis Differential Diagnoses: The differential diagnosis associated with the presentation includes covid, flu, rsv, other viral illness, bronchitis stress, adjustment disorder, depression, anxiety, no evidence of decompensated schizophrenia Lab Data [facility] Lab Attestation statement: I reviewed the patient's lab results. Labs: Lab Results 01/24/23 Range/Units 03:47 COVID-19 (ROBERT) Negative (Negative) COVID-19 Clin Com See Note Influenza Type A (GERRY) Negative (Negative) Influenza Type B (GERRY) Negative (Negative) Influenza A & B Note See Note Independent Interpretation I performed an independent interpretation of an: Plain X-Ray Interpretation: cxr w/ some linear opacities chronically in the upper lobes, no lobar pna, ptx or effusion Radiology Impression Discussion of test interpretation with radiology: I have reviewed the radiologist's reading. Radiologist Impression: EXAMINATION: XR CHEST CLINICAL INFORMATION: Cough COMPARISON: 03/23/2020 TECHNIQUE: Frontal view of the chest was obtained. FINDINGS: Lung volumes are symmetric. There are redemonstrated streaky opacities in the bilateral upper lungs which are similar to prior and suspicious for scarring. No convincing acute consolidation. No evidence of pneumothorax, pleural effusion, or pulmonary edema. The cardiomediastinal contour is unremarkable. No acute osseous findings are seen. XR/XR chest 1V IMPRESSION: No convincing acute findings. Redemonstrated streaky opacities in the upper lungs, suspicious for scarring. External Record Review External record reviewed: Outpatient record, Prior outpatient labs and Prior outpatient radiology Tests considered The following testing was considered but not selected: considered basic labs, utox and etoh however he appears well, not intoxicated Chronic Conditions Patient?s care impacted by: Other (schizophrenia) Social Determinants Patient?s care significantly limited by Social Determinants of Health including: Inadequate housing, Low income and Other Social Determinant of Health Critical Care Time Critical Care Time Critical Care Time: No Discharge Plan Discharge Clinical Impression: Housing instability Cough Qualifiers: Cough type: acute Qualified Code(s): R05.1 - Acute cough Patient Disposition: Home, Self-Care Instructions: Acute Cough (ED) Additional Instructions: Your x-ray today did not show any pneumonia. You tested negative for COVID and influenza Call the provided shelters on the list to obtain temporary housing If you develop new or worsening symptoms call 911 or come back to the ER for further evaluation. Prescriptions: No Action Preparation H Rapid Rlf-Lidocn 5-0.25-14.4-15 % cream 1 appl topical BID Qty: 28 0RF hydrocortisone-pramoxine [Analpram-HC] 2.5-1 % cream 1 appl VA QID PRN (Reason: hemorroids) Qty: 30 0RF Preparation H Rapid Rlf-Lidocn 5-0.25-14.4-15 % cream 1 appl topical DAILY Qty: 28 0RF hydrocortisone-pramoxine [Analpram-HC] 2.5-1 % cream 1 appl VA QID PRN (Reason: hemorrhoids) Qty: 30 0RF Interventions: ED Discharge Assessment Last Done: 01/24/23 08:38 Discharge Date/Time: 01/24/23 08:39
--- NOTE | 2023-01-24 07:19 | PC.NURSE ---
assumed care of this pt at 0700. pt seen by provider. pt asking for us to provide him somewhere to live, car ride to somewhere. breakfast given
== END 2023-01-24 08:39 | disposition home or self-care (01) ==
PROVIDERS: Emergency Provider Emergency Medicine Emergency Medical Services
DX: R05.1 Acute cough (principal); F20.1 Disorganized schizophrenia; Z11.52 Encounter for screening for COVID-19; Z72.89 Other problems related to lifestyle; Z59.00 Homelessness unspecified; Z79.899 Other long term (current) drug therapy
CPT/HCPCS: 71045; 87502; 87635; 99283; 99284

== ENCOUNTER 2023-01-24 21:11 | Emergency (ER) | payer MEDICAID, SELFPAY ==
[2023-01-24 21:17] VITALS: BP 136/86; PULSE 84; O2SAT 95
[2023-01-24 21:30] VITALS: BP 142/88; PULSE 89; RESP 18; TEMP 36.7; O2SAT 97; BMI 34.8
[2023-01-25 00:38] VITALS: BP 132/78; PULSE 81; RESP 17; TEMP 36.8; O2SAT 95
--- NOTE | 2023-01-25 01:33 | ED.PSYCH ---
HPI - Psych General Chief Complaint: Behavioral Concerns Stated Complaint: SOB, SEEN HERE YESTERDAY FOR SAME, PER EMS Time Seen by Provider: 01/25/23 00:40 Source: patient Mode of arrival: EMS Limitations: language barrier (Patient's 1st language is Citizen [place], he does speak Uzbek, nuclear medicine supervisor was used.) History of Present Illness HPI Narrative: 37-year-old male with history of schizoaffective disorder presents emergency department for evaluation of cough and requesting to talk to our crisis team. The patient was seen in the emergency department yesterday with similar complaint. In reviewing the record and interviewing the patient, he told me that he was living with his uncle and that he has been homeless recently. He states that he has been living in his car and in hotels and he feels like he is having a mental crisis. He denies being suicidal or homicidal pain. He has had a cough for several days and yesterday had a workup which included a chest x-ray which was negative for pneumonia, negative COVID negative and negative influenza. Patient states that he has face that the crisis team here at [facility] can help him therefore he came back to the emergency department for re-evaluation. He told me that he feels terrible, he feels very down and he needs help. Related Data Previous Rx's Medication Instructions Recorded hydrocortisone-pramoxine 2.5 %-1 % 1 appl VA QID PRN hemorrhoids #30 04/10/22 rectal cream (Analpram-HC) grams hydrocortisone-pramoxine 2.5 %-1 % 1 appl VA QID PRN hemorroids #30 04/10/22 rectal cream (Analpram-HC) grams lidocaine 5 %-phenylephrine 0.25 1 appl topical BID #28 grams 04/10/22 %-glycern 14.4 %-petrolatm 15 % cream (Preparation H Rapid Relief-Lidocaine) lidocaine 5 %-phenylephrine 0.25 1 appl topical DAILY #28 grams 04/10/22 %-glycern 14.4 %-petrolatm 15 % cream (Preparation H Rapid Relief-Lidocaine) Allergies Allergy/AdvReac Type Severity Reaction Status Date / Time No Known Allergies Allergy Verified 01/24/23 21:37 Review of Systems Review of Systems: Yes all other systems are reviewed and are negative [facility] Past Medical History [facility] Narrative: Past medical history: Schizophrenia. Social history: He is homeless. He denies tobacco, alcohol and drug use. Social History Social History Unable to assess alcohol history related to: Unknown Alcohol intake: never Use of substances other than those prescribed or required for medical reasons: Unknown Advance Directives: No Advance Directives Information Provided: No Physical Exam Vital Signs: Vital Signs: Last Vital Signs Temp 98.3 F 01/25/23 05:42 Pulse 73 01/25/23 05:42 Resp 17 01/25/23 05:42 BP 114/98 H 01/25/23 05:42 Pulse Ox 96 01/25/23 05:42 O2 Del Method Room Air 01/25/23 05:42 BMI result Body Mass Index 34.8 Vital signs were normal Exam General: Awake, alert in no distress Head: Normocephalic, atraumatic EENT: PERRL, Lids normal, sclera normal, conjunctiva normal, nose normal , ears normal, throat without erythema or exudates Neck: Supple, no adenopathy, no trachea midline or C-spine tenderness Lung: breath sounds symmetric, no wheezing, rales or rhonchi Chest: symmetric movement, nontender Heart: regular rate and rhythm, normal S1, S2 no murmurs or rubs Abdomen: soft, non-tender, nondistended, normal bowel sounds Back: no vertebral tenderness, no CVAT Extremities: no deformities, moves all extremities symmetrically Skin: no rashes, no lesion, normal color and warmth Neuro: Awake, alert, oriented, normal speech, cranial nerves intact, moves all extremities symmetrically Psych: Pleasant, cooperative Medical Decision Making Medical Decision Making [facility] Narrative: 37-year-old male with history of schizophrenia who is recently homeless who presented yesterday for evaluation of cough and and mental health issues. Chest x-ray, COVID-19 influenza were unremarkable yesterday. He denied being suicidal or homicidal and was discharged yesterday. He now returns today stating that he needs to talk to the crisis team because he is feeling very down and he needs help. I ordered the following laboratory evaluation: CBC, CMP, urine tox screen, ethanol level, COVID-19. 04:18 Start physician observation My interpretation patient's laboratory evaluation as follows: CBC was normal pain. CMP was normal. Urine drug screen was negative. Alcohol was below detectable limits. COVID-19 was negative. Patient is medically cleared for care team evaluation 07:42 End physician observation The patient was seen by care team. The patient does not need in patient care. The care team clinician did offer the patient respite at the Living [facility] and the patient did accept. Care team arrange transport Differential Diagnosis Differential Diagnoses: The differential diagnosis associated with the presentation includes Differential diagnosis includes was not limited to decompensation of schizophrenia, depression, anxiety, viral bronchitis Lab Data 01/25/23 02:02 01/25/23 02:02 Labs: Lab Results 01/25/23 01/25/23 Range/Units 02:02 03:49 WBC 8.8 (4.8-10.8) X10*3/uL RBC 4.53 L (4.60-5.80) X10*6/uL Hgb 14.7 (14.0-18.0) g/dl Hct 41.8 L (42.0-52.0) % MCV 92.3 (80.0-98.0) fL MCH 32.5 (27.0-33.0) pg MCHC 35.2 (31.0-36.0) g/dl RDW 12.1 (11.0-16.0) % Plt Count 262 (160-400) X10*3/uL MPV 10.8 (9.4-12.4) fL Immature Gran % (Auto) 0.2 (0.0-0.4) % Neut % (Auto) 59.4 (45-73) % Lymph % (Auto) 28.6 (20-40) % [place] % (Auto) 10.9 (2-11) % Eos % (Auto) 0.6 (0-4) % Baso % (Auto) 0.3 (0-2) % Lymph # (Auto) 2.5 (1.2-4.9) X10*3/uL [place] # (Auto) 1.0 (0.1-1.2) X10*3/uL Eos # (Auto) 0.1 (0.0-0.4) X10*3/uL Baso # (Auto) 0.0 (0.0-0.2) X10*3/uL Abs Immat Gran (auto) 0.02 (0.00-0.03) X10*3/uL Absolute Neuts (auto) 5.2 (2.0-8.3) x10*3/uL Absolute Nucleated RBC 0.000 (0.0-0.012) X10*3/uL Nucleated RBC % (auto) 0.0 (0.0-0.2) /100WBC Sodium 141 (135-145) mmol/L Potassium 3.7 (3.3-5.1) mmol/L Chloride 103 (96-108) mmol/L Carbon Dioxide 28 (22-29) mmol/L Anion Gap 14 (12-20) BUN 9 (9-16) mg/dL Creatinine 0.86 (0.5-1.4) mg/dL Estim Creat Clear Calc 143.1 Estimated GFR > 60 Random Glucose 94 (60-115) mg/dL Calcium 9.6 (8.4-10.2) mg/dL Total Bilirubin 0.3 (0.0-1.0) mg/dL AST 24 (5-37) U/L ALT 21 (0-40) U/L Alkaline Phosphatase 78 (39-117) U/L Total Protein 7.3 (6.5-8.0) g/dL Albumin 4.0 (3.5-5.0) g/dL Urine Opiates Screen Not Detected (Not Detect) Urine Fentanyl Screen Not Detected (Not Detect) Ur Barbiturates Screen Not Detected (Not Detect) Ur Phencyclidine Scrn Not Detected (Not Detect) Ur Amphetamines Screen Not Detected (Not Detect) U Benzodiazepines Scrn Not Detected (Not Detect) Urine Cocaine Screen Not Detected (Not Detect) U Marijuana (THC) Screen Not Detected (Not Detect) Ethyl Alcohol < 10 mg/dL COVID-19 (ROBERT) Negative (Negative) COVID-19 Clin Com See Note Discharge Plan Discharge Clinical Impression: Depression, Schizophrenia, Upper respiratory infection, viral Patient Disposition: Home, Self-Care Additional Instructions: Your evaluated by the care team. Please follow instructions. They are sending you to the living room Continue medications as prescribed by your providers. Follow-up with your doctor in 2 days. Please return to the emergency department if your symptoms get worse or if you develop any symptoms that are concerning to you. Prescriptions: No Action Preparation H Rapid Rlf-Lidocn 5-0.25-14.4-15 % cream 1 appl topical BID Qty: 28 0RF hydrocortisone-pramoxine [Analpram-HC] 2.5-1 % cream 1 appl VA QID PRN (Reason: hemorroids) Qty: 30 0RF Preparation H Rapid Rlf-Lidocn 5-0.25-14.4-15 % cream 1 appl topical DAILY Qty: 28 0RF hydrocortisone-pramoxine [Analpram-HC] 2.5-1 % cream 1 appl VA QID PRN (Reason: hemorrhoids) Qty: 30 0RF
[2023-01-25 02:06] LABS: MANUAL DIFF FLAG NO
[2023-01-25 02:08] LABS: Basophils Percent Auto 0.3 % (0-2); Eosinophils Absolute Auto 0.1 X10*3/uL (0.0-0.4); Eosinophils Percent Auto 0.6 % (0-4); Hematocrit 41.8 % (42.0-52.0); Hemoglobin 14.7 g/dl (14.0-18.0); Imm Gran Abs Auto 0.02 X10*3/uL (0.00-0.03); Imm Gran Pct Auto 0.2 % (0.0-0.4); Lymphocytes Absolute Auto 2.5 X10*3/uL (1.2-4.9); Lymphocytes Percent Auto 28.6 % (20-40); Mean Corpuscular HGB Conc 35.2 g/dl (31.0-36.0); Mean Corpuscular Hemoglobin 32.5 pg (27.0-33.0); Mean Corpuscular Volume 92.3 fL (80.0-98.0); Mean Platelet Volume 10.8 fL (9.4-12.4); Monocytes Percent Auto 10.9 % (2-11); Neutrophils Absolute Auto 5.2 x10*3/uL (2.0-8.3); Neutrophils Percent Auto 59.4 % (45-73); Platelet Count 262 X10*3/uL (160-400); Red Blood Count 4.53 X10*6/uL (4.60-5.80); Red Cell Distribution Width 12.1 % (11.0-16.0); White Blood Count 8.8 X10*3/uL (4.8-10.8)
[2023-01-25 02:24] LABS: COVID-19 Test Negative (Negative); IDNOW Serial# BCCEAD1C
[2023-01-25 02:27] LABS: Alanine Aminotransferase 21 U/L (0-40); Alkaline Phosphatase 78 U/L (39-117); Anion Gap 14 (12-20); Aspartate Amino Transferase 24 U/L (5-37); Bilirubin Total 0.3 mg/dL (0.0-1.0); Blood Urea Nitrogen 9 mg/dL (9-16); Calcium 9.6 mg/dL (8.4-10.2); Carbon Dioxide 28 mmol/L (22-29); Chloride 103 mmol/L (96-108); Creatinine Clr Calc Pharmacy 143.1; Estimated Glomerular Filt Rate > 60; Ethanol < 10 mg/dL; Glucose Random 94 mg/dL (60-115); Potassium 3.7 mmol/L (3.3-5.1); Sodium 141 mmol/L (135-145); Total Protein 7.3 g/dL (6.5-8.0)
[2023-01-25 04:07] LABS: Amphetamine Screen Urine Not Detected (Not Detect); Barbiturates, Urine Not Detected (Not Detect); Benzodiazepines Screen Urine Not Detected (Not Detect); Cannabinoid Screen Urine Not Detected (Not Detect); Cocaine Screen Urine Not Detected (Not Detect); Fentanyl, urine Not Detected (Not Detect); Opiate Screen Urine Not Detected (Not Detect); Phencyclidine Screen Urine Not Detected (Not Detect)
[2023-01-25 05:42] VITALS: BP 114/98; PULSE 73; RESP 17; TEMP 36.8; O2SAT 96
== END 2023-01-25 08:33 | disposition home or self-care (01) ==
PROVIDERS: Emergency Provider Emergency Medicine Emergency Medical Services
DX: F25.1 Schizoaffective disorder, depressive type (principal); J06.9 Acute upper respiratory infection, unspecified; Z11.52 Encounter for screening for COVID-19; Z20.822 Contact with and (suspected) exposure to COVID-19; Z79.899 Other long term (current) drug therapy
CPT/HCPCS: 80053; 80307; 85025; 87635; 99284

== ENCOUNTER 2023-10-23 13:01 | Inpatient (IN) | payer MEDICAID, OTHER, SELFPAY ==
--- NOTE | 2023-10-23 13:45 | ED.GENADULT ---
HPI - General Adult General Chief complaint: Psychiatric Symptoms Stated complaint: Anxiety Time Seen by Provider: 10/23/23 17:35 Source: patient, RN notes reviewed and old records reviewed Mode of arrival: ambulatory Limitations: no limitations History of Present Illness ED Provider: JOSUE MARTINEZ PA-C HPI narrative: 38 year old male with pmhx significant for schizoaffective disorder presents to the ED for evaluation of anxiety and paranoia x months. Patient reports moving into his own apartment 9 months ago. Over the past few months, has been feeling increasingly anxious. Admits he feels as though people are following him however when he looks around, there is no one there. Admits to losing multiple jobs over the last few months due to this. He is not currently on any medications however would like something to stable him . Requesting to speak to our care team. Denies SI/HI. Denies illicit substance use. Denies etoh consumption. Related Data Home Medications ?Medication ?Instructions ?Recorded ?Confirmed No Known Home Meds 10/24/23 10/24/23 Allergies Allergy/AdvReac Type Severity Reaction Status Date / Time No Known Allergies Allergy Verified 10/23/23 13:50 Review of Systems Review of Systems: Constitutional: No fever, chills, fatigue, night sweats, weight changes ENT/Mouth: No ear pain, hearing loss, nasal congestion, sinus pain, rhinorrhea, sore throat Eyes: No eye pain, swelling, redness, vision changes, discharge Cardio: No chest pain, palpitations, NESBITT, orthopnea, peripheral edema Pulm: No SOB, cough, sputum, wheezing, dyspnea, hemoptysis GI: No nausea, vomiting, hematemesis, abdominal pain, diarrhea, constipation, hematochezia, melena : No irregular bleeding, dysuria, frequency, urgency, hesitancy, hematuria, flank pain, urinary flow changes, urinary incontinence or retention MSK: No back pain, neck pain, joint pain, myalgias Skin: No lesions, rashes Neuro: No weakness, numbness, paresthesias, LOC, dizziness, headache Psych: No depression, SI/HI, AH/VH, +anxiety, +paranoia All other systems reviewed and are negative. [facility] Past Medical History Attestation statement: The following information was validated with the patient. Source: old records reviewed and nursing notes reviewed Social History Social History Unable to assess alcohol history related to: Unknown Alcohol intake: former Smoked in Last 30 Days: No Use of substances other than those prescribed or required for medical reasons: No Advance Directives: No Advance Directives Information Provided: Yes Do you have a plan to hurt others: No Plan Physical Exam ED Vital Signs: Vital Signs - 24 hr 10/25/23 16:14 10/26/23 06:14 Temperature 99.4 F Pulse Rate 89 Respiratory Rate 16 18 Blood Pressure 132/86 Pulse Oximetry 97 Oxygen Delivery Method Room Air Room Air BMI result Body Mass Index 35.0 Vital signs stable Const General: cooperative, healthy appearing, comfortable and no acute distress Orientation/consciousness: patient oriented x3 Limitations: no limitations HENMT Head: Yes normal to inspection, Yes No palpable skull fracture present, Yes normocephalic and Yes atraumatic Eyes General: appearance normal, both eyes and all related structures Pupils: Equal, round and reactive pupils present Neck Neck: Yes normal visual inspection Resp Effort & Inspection: normal respiratory effort and able to speak in complete sentences Auscultation: clear to auscultation bilaterally GI Inspection: Yes normal to inspection Skin General skin exam: no rashes or lesions noted Neuro General: patient oriented x3, gait normal and no focal motor deficits Cranial nerves: Yes CN's II-XII intact bilaterally and Yes Equal, round and reactive pupils present Extrem General: Yes normal to inspection Course Course Course Narrative: This is an RME performed by Becka Tang CNP: Additional HPI, ROS, PE not included below will be deferred to primary provider. Patient is a 38-year-old male history of schizoaffective disorder, who presents to the emergency department reporting over the past few months since moving into a new apartment he has been feeling anxious paranoid, feeling as though things such as his phone not working appropriately. He states that he feels this way while at his mother's house as well and has had difficulty with multiple jobs recently due to the way that he is feeling. No SI/ HI. Reports being on medicine in the past for anxiety but was not helpful. Reevaluation(s) Reevaluation #1: 0147-- CBC without leukocytosis or left shift. No anemia. H&H stable. Chemistry without acute electrolyte abnormality requiring intervention. Normal renal function. Normal liver function. UA negative for infection. U tox negative. Ethanol undetectable. EKG showing normal sinus rhythm with a rate of 70 beats per minute, QT 368, QTC 397, no acute ischemic changes or ST elevations. > physician observation initiated pending care team consultation and disposition. Reevaluation #2: Clinically stable overnight hx schizoafective disorder no event overnight waiting for crisis dispo Time: 07:10 Reevaluation #3: 10/26/2023 bed search ongoing no events reported overnight Time: 07:13 Medications Administered Generic Name Dose Route Start Last Admin Trade Name Freq PRN Reason Stop Dose Admin Olanzapine 5 mg 10/25/23 14:55 10/26/23 03:01 Olanzapine 5 Mg Tablet PO 5 mg BID PRN Administration anxiety, agitation, paranoia Discontinued Medications Generic Name Dose Route Start Last Admin Trade Name Freq PRN Reason Stop Dose Admin Acetaminophen 650 mg 10/24/23 20:52 10/24/23 20:57 Acetaminophen 325 Mg Tablet PO 10/24/23 20:53 650 mg ONCE ONE Administration Acetaminophen 650 mg 10/26/23 03:54 10/26/23 03:57 Acetaminophen 325 Mg Tablet PO 10/26/23 03:55 650 mg ONCE ONE Administration Diphenhydramine HCl 50 mg 10/24/23 02:38 10/24/23 02:42 Diphenhydramine Hcl 25 Mg Capsule PO 10/24/23 02:39 50 mg ONCE ONE Administration Diphenhydramine HCl 50 mg 10/24/23 20:16 10/24/23 20:24 Diphenhydramine Hcl 25 Mg Capsule PO 10/24/23 20:17 50 mg ONCE ONE Administration Medical Decision Making Medical Decision Making [facility] Narrative: 38 year old male with pmhx significant for schizoaffective disorder presents to the ED for evaluation of anxiety and paranoia x months. vss. he is nontoxic appearing and in NAD. Patient is AOX3. RRR. Lungs CTA b/l. Differential diagnosis includes anxiety, schizoaffective, paranoia, anemia, electrolyte abnormality Plan for labs, UA, u tox, EKG, care team evaluation. Differential Diagnosis Differential Diagnoses: The differential diagnosis associated with the presentation includes as above Admission/Observation Not indicated Lab Data [facility] Lab Attestation statement: I reviewed the patient's lab results. as above 10/23/23 15:45 10/23/23 15:45 Labs: Lab Results 10/23/23 10/23/23 Range/Units 15:45 15:47 WBC 8.1 (4.8-10.8) X10*3/uL RBC 4.77 (4.60-5.80) X10*6/uL Hgb 15.5 (14.0-18.0) g/dl Hct 43.7 (42.0-52.0) % MCV 91.6 (80.0-98.0) fL MCH 32.5 (27.0-33.0) pg MCHC 35.5 (31.0-36.0) g/dl RDW 12.2 (11.0-16.0) % Plt Count 218 (160-400) X10*3/uL MPV 10.8 (9.4-12.4) fL Immature Gran % (Auto) 0.2 (0.0-0.4) % Neut % (Auto) 65.1 (45-73) % Lymph % (Auto) 27.2 (20-40) % [place] % (Auto) 6.8 (2-11) % Eos % (Auto) 0.5 (0-4) % Baso % (Auto) 0.2 (0-2) % Lymph # (Auto) 2.2 (1.2-4.9) X10*3/uL [place] # (Auto) 0.6 (0.1-1.2) X10*3/uL Eos # (Auto) 0.0 (0.0-0.4) X10*3/uL Baso # (Auto) 0.0 (0.0-0.2) X10*3/uL Abs Immat Gran (auto) 0.02 (0.00-0.03) X10*3/uL Absolute Neuts (auto) 5.2 (2.0-8.3) x10*3/uL Absolute Nucleated RBC 0.000 (0.0-0.012) X10*3/uL Nucleated RBC % (auto) 0.0 (0.0-0.2) /100WBC Sodium 140 (135-145) mmol/L Potassium 3.8 (3.3-5.1) mmol/L Chloride 102 (96-108) mmol/L Carbon Dioxide 29 (22-29) mmol/L Anion Gap 13 (12-20) BUN 7 L (9-16) mg/dL Creatinine 0.98 (0.5-1.4) mg/dL Estim Creat Clear Calc 124.7 Estimated GFR > 60 Random Glucose 89 (60-115) mg/dL Calcium 9.7 (8.4-10.2) mg/dL Total Bilirubin 0.5 (0.0-1.0) mg/dL AST 30 (5-37) U/L ALT 22 (0-40) U/L Alkaline Phosphatase 84 D (39-117) U/L Total Protein 7.3 (6.5-8.0) g/dL Albumin 4.4 (3.5-5.0) g/dL Urine Color Yellow Urine Appearance Clear Urine pH 5.5 (5.0-9.0) Ur Specific [place] 1.020 (1.005-1.025) Urine Protein 30 (1+) H (Neg-Trace) mg/dL Urine Glucose (UA) Negative (Negative) mg/dL Urine Ketones Negative (Negative) mg/dL Urine Blood Negative (Negative) Urine Nitrite Negative (Negative) Ur Leukocyte Esterase Negative (Negative) Urine RBC 0-2 (0-2) /HPF Urine WBC 0-5 (0-5) /HPF Ur Squamous Epith Cells 0-2 (0-2) /HPF Urine Bacteria None Seen (None Seen) Hyaline Casts 0-2 (0-2) /LPF Urine Opiates Screen NOT DETECTED (Not Detect) Ur Buprenorphine Scrn NOT DETECTED (Not Detect) ng/mL Ur Oxycodone Screen NOT DETECTED (Not Detect) ng/mL Urine Methadone Screen NOT DETECTED (Not Detect) ng/mL Urine Fentanyl Screen Not Detected (Not Detect) Ur Barbiturates Screen NOT DETECTED (Not Detect) Ur Phencyclidine Scrn NOT DETECTED (Not Detect) Ur Amphetamines Screen NOT DETECTED (Not Detect) U Benzodiazepines Scrn NOT DETECTED (Not Detect) Urine Cocaine Screen NOT DETECTED (Not Detect) U Marijuana (THC) Screen NOT DETECTED (Not Detect) Ethyl Alcohol < 10 mg/dL Independent Interpretation I performed an independent interpretation of an: EKG Interpretation: EKG showing normal sinus rhythm with a rate of 70 beats per minute, QT 368, QTC 397, no acute ischemic changes or ST elevations. External Record Review External record reviewed: Inpatient record (prior visits) Chronic Conditions Patient?s care impacted by: Other (Schizoaffective) Social Determinants Patient?s care significantly limited by Social Determinants of Health including: Other Social Determinant of Health Critical Care Time Critical Care Time Critical Care Time: No Discharge Plan Discharge Clinical Impression: Anxiety, Paranoia Patient Disposition: Still a Patient Prescriptions: No Action No Known Home Meds Interventions: [place]-Suicide Risk Severity Scale Last Done: 10/24/23 20:51 Print Language: Yi
[2023-10-23 13:46] VITALS: BP 134/84; PULSE 90; RESP 20; TEMP 36.6; O2SAT 97; BMI 35.0
[2023-10-23 15:52] LABS: MANUAL DIFF FLAG NO
[2023-10-23 15:54] LABS: Basophils Percent Auto 0.2 % (0-2); Eosinophils Percent Auto 0.5 % (0-4); Hematocrit 43.7 % (42.0-52.0); Hemoglobin 15.5 g/dl (14.0-18.0); Imm Gran Abs Auto 0.02 X10*3/uL (0.00-0.03); Imm Gran Pct Auto 0.2 % (0.0-0.4); Lymphocytes Absolute Auto 2.2 X10*3/uL (1.2-4.9); Lymphocytes Percent Auto 27.2 % (20-40); Mean Corpuscular HGB Conc 35.5 g/dl (31.0-36.0); Mean Corpuscular Hemoglobin 32.5 pg (27.0-33.0); Mean Corpuscular Volume 91.6 fL (80.0-98.0); Mean Platelet Volume 10.8 fL (9.4-12.4); Monocytes Absolute Auto 0.6 X10*3/uL (0.1-1.2); Monocytes Percent Auto 6.8 % (2-11); Neutrophils Absolute Auto 5.2 x10*3/uL (2.0-8.3); Neutrophils Percent Auto 65.1 % (45-73); Platelet Count 218 X10*3/uL (160-400); Red Blood Count 4.77 X10*6/uL (4.60-5.80); Red Cell Distribution Width 12.2 % (11.0-16.0); White Blood Count 8.1 X10*3/uL (4.8-10.8)
[2023-10-23 15:55] LABS: Appearance Urine Clear; Color Urine Yellow; Glucose Urine UA Negative (Negative); Leukocyte Esterase Urine Negative (Negative); Nitrite Urine Negative (Negative); PH 5.5 (5.0-9.0); UMIC TRIGGER UACC YES; Urine Blood Negative (Negative); Urine Ketones Negative (Negative); Urine Protein 30 (1+) mg/dL (Neg-Trace)
[2023-10-23 15:57] LABS: Bacteria Urine None Seen (None Seen); Hyaline Casts Urine 0-2 /LPF (0-2); RBC Urine 0-2 /HPF (0-2); Squamous Epithelial Cell Urine 0-2 /HPF (0-2); WBC Urine 0-5 /HPF (0-5)
[2023-10-23 16:16] LABS: Amphetamine Screen Urine NOT DETECTED (Not Detect); Barbiturates, Urine NOT DETECTED (Not Detect); Benzodiazepines Screen Urine NOT DETECTED (Not Detect); Buprenorphine Scr NOT DETECTED (Not Detect); Cannabinoid Screen Urine NOT DETECTED (Not Detect); Cocaine Screen Urine NOT DETECTED (Not Detect); Fentanyl, urine Not Detected (Not Detect); Methadone Screen, Urine NOT DETECTED (Not Detect); Opiate Screen Urine NOT DETECTED (Not Detect); Oxycodone Screen Urine NOT DETECTED (Not Detect); Phencyclidine Screen Urine NOT DETECTED (Not Detect)
[2023-10-23 16:31] LABS: Potassium 3.8 mmol/L (3.3-5.1); Sodium 140 mmol/L (135-145)
[2023-10-23 16:32] LABS: Alanine Aminotransferase 22 U/L (0-40); Albumin Level 4.4 g/dL (3.5-5.0); Alkaline Phosphatase 84 U/L (39-117); Anion Gap 13 (12-20); Aspartate Amino Transferase 30 U/L (5-37); Bilirubin Total 0.5 mg/dL (0.0-1.0); Blood Urea Nitrogen 7 mg/dL (9-16); Calcium 9.7 mg/dL (8.4-10.2); Carbon Dioxide 29 mmol/L (22-29); Chloride 102 mmol/L (96-108); Creatinine Clr Calc Pharmacy 124.7; Estimated Glomerular Filt Rate > 60; Ethanol < 10 mg/dL; Glucose Random 89 mg/dL (60-115); Total Protein 7.3 g/dL (6.5-8.0)
[2023-10-23 17:30] VITALS: BP 145/91; PULSE 82; RESP 16; O2SAT 96
--- NOTE | 2023-10-23 18:25 | PC.NURSE ---
this RN acquired site interpreter to utilize information from pt at this time. upon arrival of site interpreter - pt refusing to speak/participate in regards to care w/ this RN at this time. pt seen by ED provider/pending care team consult at this time. respirations even/unlabored. plan of care ongoing. call bernard placed within reach.
--- NOTE | 2023-10-23 18:34 | ECG_ITS ---
Test Reason : ANXIETY Blood Pressure : / mmHG Vent. Rate : 070 BPM Atrial Rate : 070 BPM P-R Int : 148 ms QRS Dur : 086 ms QT Int : 368 ms P-R-T Axes : 067 050 047 degrees QTc Int : 397 ms Normal sinus rhythm Normal ECG When compared with ECG of 23-MAR-2020 12:27, No significant change was found Referred By: Jyoce Martinez Electronically Signed By:MARISOL WYNN MD
[2023-10-23 21:07] VITALS: BP 146/96; PULSE 66; RESP 16; O2SAT 99
--- NOTE | 2023-10-23 22:22 | PC.NURSE ---
Patient is alert to self, place, and person. He's unable to state current date. Patient complaints of intermittent, chronic pain in upper abdomen, 04/15 at present. Patient is calm, cooperative with care at present. He denies SI/HI. Patient changed over into a POD attire. Patient requested saltine crackers with salazar james, provided and tolerated well.
[2023-10-24 02:00] VITALS: BP 138/92; PULSE 74; RESP 16; TEMP 36.4; O2SAT 97
[2023-10-24] MEDS: diphenhydrAMINE HCL 25 MG CAPSULE 50 MG PO ×2 (02:42→20:24)
--- NOTE | 2023-10-24 06:58 | PC.NURSE ---
Assumed care of patient at 0645. Patient is observed praying quietly in his room. No signs of distress, breathing is even and unlabored.
--- NOTE | 2023-10-24 18:09 | MHC.CARE ---
CARMEN completed, initial boarding # [id number]
--- NOTE | 2023-10-24 19:07 | PC.NURSE ---
patient appears to remain at rest t/w just provided client a tea appears in no distress, smiling and pleasant patient appearz in no distress.
[2023-10-24] MEDS: Acetaminophen 325 MG TABLET 650 MG PO (20:57)
--- NOTE | 2023-10-25 04:25 | PC.NURSE ---
client was kneeling praying next to his bed for about 10-15 minutes then crawled under desk and brought chair in front of him, i encouraged patient to no go under there youll get stuck i told client we would be checking on him every five minutes to make sure he was ok.
--- NOTE | 2023-10-25 04:31 | PC.NURSE ---
client now kneeling on floor and appears to be praying on knees, more easily to visualize patient and his safety, ceasing 5 minutes checks and resuming regular observation so as not to agitate patient.
--- NOTE | 2023-10-25 10:15 | PM.EVENT ---
Documented by User: Krystal Chance APRN 10/26/23 14:18 Event Note Date of Service: 10/26/23 Event Note: Team request for prn trial for pt with diagnosis of schizoaffective disorder, with reported prominent symptoms of anxiety, fear and paranoia. Suggest Olanzapine 5 mg bid prn. Time Spent With Patient Time: Total time managing care of this patient today ____ minutes. Documented by User: Jay Mishra MD 11/15/23 20:14 Event Note Date of Service: 11/15/23
[2023-10-25 16:14] VITALS: BP 132/86; PULSE 89; RESP 16; TEMP 37.4; O2SAT 97
[2023-10-26] MEDS: OLANZapine 5 MG TABLET PO (03:01)
[2023-10-26] MEDS: Acetaminophen 325 MG TABLET 650 MG PO (03:57)
[2023-10-26 06:14] VITALS: RESP 18
--- NOTE | 2023-10-26 07:25 | PC.NURSE ---
Assumed care of patient at 0645, patient appears to be in no apparent distress this am, ambulating around BH pod with steady gait, offering no complaints. Continue plan of care for inpatient bedsearch this am
[2023-10-26 09:15] VITALS: BP 136/86; PULSE 92; RESP 16; O2SAT 97
[2023-10-26 12:28] VITALS: RESP 16
--- NOTE | 2023-10-26 13:01 | PC.NURSE ---
pt transported to w/Loli RN and security attendant
--- NOTE | 2023-10-26 14:18 | P.EN_ITS ---
Documented by User: Krystal ChanceKRYSTLE 10/26/23 16:14 Event Note Date of Service: 10/26/23 Event Note: Admission to . Pt reports he has no interest in admission, declines conditional voluntary. States he does not want to be here and does not belong here with drug addicts. States he has done his 72 hours in ER and asks to leave immediately. Declines medications at this time as well. Pt returned to discuss his concerns with keno writer / runner. Reports that he has called family and they report they did not want him admitted and did not sign him in. Reviewed 72 hour involuntary and that he has been signed in by the hospital, not family, however, family had given information of concern regarding his symptoms which contributed to the decision to admit him. He accused this keno writer / runner of lying. Met with pt, [facility] cytology teacher and call to mother, Melissa [phone]. Mother reviewed family concerns and their agreement that pt should be admitted, stabilized on medications before discharge. Mother reports pt has been off medications for several years and his quality of life has significantly declined as a result of refusal of treatment. They believe he will not comply with meds on an out patient basis. Pt argued with mother. When the conversation ended pt demanded discharge. Explained that we would keep the [address] for assessment. Pt then informed tw that he would not work with me as his provider. Offered [facility] numbers which he declined. Time Spent With Patient Time: Total time managing care of this patient today ____ minutes. Documented by User: Jay Mishra MD 10/26/23 22:31 Event Note Date of Service: 10/26/23
[2023-10-26 15:06] VITALS: BP 134/91; PULSE 60; RESP 20; TEMP 36.4; O2SAT 97
--- NOTE | 2023-10-26 15:08 | PC.NURSE ---
Nursing admission note: 38 year old male admitted to unit on section 12b. DX: Psychosis unspecified, Anxiety unspecified. Referred for admission by CARE team. Self presented to ED due to increased anxiety and paranoia over the past several months. Patient engages easily however states he does not need to be here, and is not going to stay here stating it is like a half-way for me . States he needed a rest although was able to get rest in ED, and has been sleeping. Patient makes good eye contact, intense at times, well groomed with good attention to ADL. Speech is normal rate, tone, volume. Patient tangential. Denies mood disturbances, denies SI/HI at this time. Denies perceptual disturbances, denies A/V hallucinations. Denies paranoia or suspiciousness. Patient refused to sign any paperwork, refused to accept name band, and requested admission paperwork to be removed from his room. Cooperative with skin check. No medical problems reported. NKA. Tox screen negative, denies substance use. 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 Per crisis evaluation his family reports over the last year patients symptoms have worsened, describing patient as paranoid, disorganized with periods of agitation. Placed on 15 minute safety checks. See nursing assessment for further details, crisis evaluation for complete details.
[2023-10-26 18:59] VITALS: BMI 35.0
[2023-10-26 20:00] VITALS: BP 151/66; PULSE 67; RESP 16; TEMP 36.4; O2SAT 97
[2023-10-27 08:00] VITALS: BP 132/78; PULSE 82; RESP 18; TEMP 36; O2SAT 97
--- NOTE | 2023-10-27 11:45 | HO.PSYADMNOT ---
HPI Date of Service: 10/27/23 Chief Complaint: schizophrenia Sources of Information: patient interviewed, chart reviewed and crisis/core team assessment reviewed HPI Subjective Notes: Section 12B Healthcare Proxy: No Guardianship: No Medical Problems Affecting Mental Status: No Narrative: 38 yo male to ER with family who reported decompensation over the past five years due to med/treatment decline. Sx they report increased over the past 18 months. Family reports pt has paranoia, disorganization of thought, agitation, hallucinations and cannot hole a job or function in community. Pt had no interest in admission, telling crisis he felt this was a intermediate, not the right place for him and only needed sleeping medications. Tells crisis he does not take medications as it controls his thoughts and asked to leave with sleep medicine and therapy referral. Pt admitted on . Tw met with him initially on 10/25. He was resistant, refused CV. Reviewed data given by family and crisis. Called mother with pt and telephone clerk telegraph office. Mother reviewed her concerns. Pt disagreed. Reviewed 72 hour admit, offered medicine for sleep and informed pt we would evaluate. Pt declined and was disbelieving of any information offered. He declined to call [facility]. Met with pt, Hugh LUZ, [facility] Mending Carrier, Alicia Heck APRN. Pt asking to discharge. Review of meds. Pt reports hx of Risperdal. Suggested low dose Seroquel for sleep. Discussed klonopin (uncle uses this), discussed antidepressant. Pt willing to trial low dose Seroquel 25 mg tonight. Asks that on 10/27 we discharge him, call uncle to help him out and possibly connect him with [facility]. We will work with this. Past Psychiatric History: IP: Denies OP: Denies current [facility] Med Trials: Risperdal Medical Evaluation Reviewed: Yes [facility] Family History: declined to discuss --uncle uses klonopin Social History: declined to discuss Substance History: denies Trauma History: declined to discuss Diagnostics Vital Signs (24Hr): Vital Signs - 24 hr 10/26/23 12:28 10/26/23 15:06 10/26/23 20:00 Temperature 97.5 F 97.5 F Pulse Rate 60 67 Respiratory Rate 16 20 16 Blood Pressure 134/91 H 151/66 H Pulse Oximetry 97 97 Oxygen Delivery Method Room Air Room Air 10/27/23 08:00 Temperature 96.8 F Pulse Rate 82 Respiratory Rate 18 Blood Pressure 132/78 Pulse Oximetry 97 Oxygen Delivery Method Room Air BMI result Body Mass Index 35.0 Labs 10/23/23 15:45 10/23/23 15:45 Meds/Allergies Meds Home Medications ?Medication ?Instructions ?Recorded ?Confirmed ?Type No Known Home Meds 10/24/23 10/24/23 History Allergies Allergies Allergy/AdvReac Type Severity Reaction Status Date / Time No Known Allergies Allergy Verified 10/23/23 13:50 Mental Status Exam Mental Status Exam Patient Appearance: Appropriate Patient Orientation: Person, Place, Time and Situation Level of Consciousness: Alert Patient Behavior: Talkative, Cooperative, Resistive to Care and Good Eye Contact Mood Description: Hostile and Angry Affect Description: Hostile and Angry Patient Cognition Impaired: No Ability to Follow Directions: Good Speech Pattern: Spontaneous Speech Memory Description: Intact Hallucinations: None Delusions: Not Present Thought Process: Intact Thought Content: positive for Intact Judgement: Good Assessment & Plan Assessment & Plan (1) Paranoia: Status: Acute Code(s): F22 - Delusional disorders (2) Anxiety: Status: Acute Code(s): F41.9 - Anxiety disorder, unspecified Plan 38 yo male presents with family who report untreated schizophrenia for five years. Family reports paranoia, disorganization, agitation, hallucinations and inability to function in community and hold a job. Pt has no interest in admission, asks for sleep med, discharge and referral to psychotherapy. Plan: Seroquel 25 mg HS Work with pt/family/[facility]/Team on discharge for tomorrow. Patient educated on: medication risk/benefits Reason for continued inpatient stay Substantial Risk for: inability to function Statement Statement: I have reviewed the history and physical and performed a pertinent examination on my patient. No changes have occurred unless specified. If the History and Physical was not performed prior to admission, the Hospitalist's service will be consulted for completing the admission physical. Time Spent With Patient Time: Total time managing care of this patient today ____ minutes.
[2023-10-27 20:00] VITALS: BP 139/80; PULSE 69; RESP 16; TEMP 36.3; O2SAT 97
[2023-10-27] MEDS: QUEtiapine Fumarate 25 MG TABLET PO (21:00)
[2023-10-28 08:40] LABS: Estimated Average Glucose 100 mg/dL; Hemoglobin A1c % 5.1 % (<6.0)
[2023-10-28 08:56] LABS: Cholesterol 237 mg/dL (<200); HDL Cholesterol 42 mg/dL (>40); LDL Cholesterol Calculated 168 mg/dL (<100); Triglycerides 135 mg/dL (<150)
[2023-10-28 09:14] LABS: Free T4 (Free Thyroxine) 0.98 ng/dL (0.71-1.85); Thyroid Stimulating Hormone 1.14 uIU/mL (0.32-4.0)
[2023-10-28 09:23] VITALS: BP 127/88; PULSE 77; RESP 16; TEMP 36.4; O2SAT 98
[2023-10-28 09:23] LABS: Folate 12.9 ng/mL (> or = 4.0); Vitamin B12 706 pg/mL (200-900)
--- NOTE | 2023-10-28 19:09 | P.DS_ITS ---
DS: Providers Provider Date of Service: 10/28/23 Date of admission: 10/26/23 11:21 Date of discharge: 10/28/23 Primary care physician: Rogelio Physician Admitting clinician: Krystal Chance Attending physician on admission: Jay Mishra Attending physician on discharge: Jay Mishra Discharging clinician: Krystal Chance DS: Diagnosis Discharge Diagnosis (1) Paranoia: Status: Resolved (2) Anxiety: Status: Acute DS: Medications Discharge Medications Home Medications: Previous Rx's ?Medication ?Instructions ?Recorded quetiapine 25 mg tablet 25 mg PO BEDTIME #7 tabs 10/28/23 Mental Status Exam Mental Status Exam Patient Appearance: Appropriate Patient Orientation: Person, Place, Time and Situation Level of Consciousness: Alert Patient Behavior: Talkative, Cooperative, Resistive to Care and Good Eye Contact Mood Description: Hostile and Angry Affect Description: Hostile and Angry Patient Cognition Impaired: No Ability to Follow Directions: Good Speech Pattern: Spontaneous Speech Memory Description: Intact Hallucinations: None Delusions: Not Present Thought Process: Intact Thought Content: positive for Intact Judgement: Good Data Data Completed and Pending Completed studies during hospitalization [Text1]: 10/23/23 10/23/23 10/28/23 15:45 15:47 08:25 WBC 8.1 RBC 4.77 Hgb 15.5 Hct 43.7 MCV 91.6 MCH 32.5 MCHC 35.5 RDW 12.2 Plt Count 218 MPV 10.8 Immature Gran % (Auto) 0.2 Neut % (Auto) 65.1 Lymph % (Auto) 27.2 [place] % (Auto) 6.8 Eos % (Auto) 0.5 Baso % (Auto) 0.2 Lymph # (Auto) 2.2 [place] # (Auto) 0.6 Eos # (Auto) 0.0 Baso # (Auto) 0.0 Abs Immat Gran (auto) 0.02 Absolute Neuts (auto) 5.2 Absolute Nucleated RBC 0.000 Nucleated RBC % (auto) 0.0 Sodium 140 Potassium 3.8 Chloride 102 Carbon Dioxide 29 Anion Gap 13 BUN 7 L Creatinine 0.98 Estim Creat Clear Calc 124.7 Estimated GFR > 60 Random Glucose 89 Estimat Average Glucose 100 Hemoglobin A1c % 5.1 Calcium 9.7 Magnesium 2.0 Total Bilirubin 0.5 AST 30 ALT 22 Alkaline Phosphatase 84 D Total Protein 7.3 Albumin 4.4 Triglycerides 135 Cholesterol 237 H LDL Cholesterol, Calc 168 H HDL Cholesterol 42 Vitamin B12 706 Folate 12.9 TSH 1.14 Free T4 0.98 Urine Color Yellow Urine Appearance Clear Urine pH 5.5 Ur Specific [place] 1.020 Urine Protein 30 (1+) H Urine Glucose (UA) Negative Urine Ketones Negative Urine Blood Negative Urine Nitrite Negative Ur Leukocyte Esterase Negative Urine RBC 0-2 Urine WBC 0-5 Ur Squamous Epith Cells 0-2 Urine Bacteria None Seen Hyaline Casts 0-2 Urine Opiates Screen NOT DETECTED Ur Buprenorphine Scrn NOT DETECTED Ur Oxycodone Screen NOT DETECTED Urine Methadone Screen NOT DETECTED Urine Fentanyl Screen Not Detected Ur Barbiturates Screen NOT DETECTED Ur Phencyclidine Scrn NOT DETECTED Ur Amphetamines Screen NOT DETECTED U Benzodiazepines Scrn NOT DETECTED Urine Cocaine Screen NOT DETECTED U Marijuana (THC) Screen NOT DETECTED Ethyl Alcohol < 10 DS: Summary Hospital Course Hospital Course: Admission to adult psychiatry for exacerbation of anxiety, family reports schizophrenia with no treatment for over five years. Family reports decompensation over the past 18 months. Pt reported no interest in treatment. He was willing to accept medication to help with sleep (Seroquel) and will trial an out patient appointment. He was discharged with his uncles' agreement at the end of Section 12B period. Status at Discharge Functional status at discharge: independent ambulation Overall status at discharge: patient is back to baseline Time Spent with Patient Time attestation: Total time managing care of this patient today ____ minutes. Time spent: Less than 30 minutes Discharge Plan Discharge Anticipated Discharge Date/Time: 10/28/23 12:00 Patient Disposition: Home, Self-Care Discharge Diagnosis: Paranoia Anxiety Referrals: Physician,None [Primary Care Provider] - 1 Week (Pt to follow up with [facility] walk-in clinic within 1 week. Hours: 8am-4pm) Discharge Medications: New quetiapine 25 mg Tablet 25 mg PO BEDTIME Qty: 7 4RF Discharge Orders: Discharge Order (Routine); Ordered 10/28/23 Ordered By: Krystal Chance Diet: Advance to usual diet Activity on Discharge: As tolerated Stand Alone Forms: Patient Portal Discharge page, Community Support Print Language: Arabic Care Plan Goals: Mood and Behavioral Stabilization Health Concerns: Mood and Behavioral Stabilization Plan of Treatment: Attend scheduled appointments Take medications as directed Assessment: Discharge, Section 12B Denies SI/HI/AH/VH Pt willing to attend out patient treatment with [facility]. Discharge Date/Time: 10/28/23 12:15
== END 2023-10-28 12:15 | disposition home or self-care (01) | DRG 760 ==
LOC: HO.ED 22:53 → HO.PM5 10-26 11:36
PROVIDERS: Nurse Practitioner Family; Admitting Provider Clinical Nurse Specialist Psychiatric/Mental Health, Adult; Emergency Provider Emergency Medicine; Visit Provider Clinical Nurse Specialist Psychiatric/Mental Health, Adult
DX: F22 Delusional disorders (principal); F41.9 Anxiety disorder, unspecified; Z79.899 Other long term (current) drug therapy
CPT/HCPCS: 36415; 80053; 80061; 80307; 81001; 82607; 82746; 83036; 83735; 84439; 84443; 85025; 93005; 99285; S9485

== ENCOUNTER → 2023-10-23 18:34 | Outpatient (BNV) | payer MEDICAID, SELFPAY | PROVIDERS: Emergency Provider Emergency Medicine; Visit Provider Internal Medicine Cardiovascular Disease | DX: F41.1 Generalized anxiety disorder (principal) | CPT/HCPCS: 93010 ==

== ENCOUNTER → 2023-10-26 11:21 | Outpatient (BNV) | payer OTHER, SELFPAY | PROVIDERS: Admitting Provider Clinical Nurse Specialist Psychiatric/Mental Health, Adult; Emergency Provider Emergency Medicine; Visit Provider Clinical Nurse Specialist Psychiatric/Mental Health, Adult | DX: F22 Delusional disorders (principal); F41.9 Anxiety disorder, unspecified | CPT/HCPCS: 99231; 99232; 99499 ==

== ENCOUNTER 2024-01-13 21:50 | Emergency (ER) | payer MEDICAID, SELFPAY ==
--- NOTE | 2024-01-13 | ECG_ITS ---
Test Reason : MED CLEARANCE Blood Pressure : / mmHG Vent. Rate : 069 BPM Atrial Rate : 069 BPM P-R Int : 148 ms QRS Dur : 080 ms QT Int : 364 ms P-R-T Axes : 027 059 043 degrees QTc Int : 390 ms Normal sinus rhythm Normal ECG When compared with ECG of 23-OCT-2023 20:09, No significant change was found Referred By: Generic ED Physician Electronically Signed By:MARISOL WYNN MD
[2024-01-13 22:29] VITALS: BP 170/83; PULSE 91; RESP 18; TEMP 36.2; O2SAT 98; BMI 36.7
[2024-01-13 23:06] LABS: MANUAL DIFF FLAG NO
[2024-01-13 23:07] LABS: Basophils Percent Auto 0.3 % (0-2); Eosinophils Percent Auto 0.5 % (0-4); Hematocrit 42.5 % (42.0-52.0); Imm Gran Abs Auto 0.02 X10*3/uL (0.00-0.03); Imm Gran Pct Auto 0.3 % (0.0-0.4); Lymphocytes Absolute Auto 2.3 X10*3/uL (1.2-4.9); Lymphocytes Percent Auto 29.4 % (20-40); Mean Corpuscular HGB Conc 35.3 g/dl (31.0-36.0); Mean Corpuscular Hemoglobin 32.6 pg (27.0-33.0); Mean Corpuscular Volume 92.4 fL (80.0-98.0); Mean Platelet Volume 11.4 fL (9.4-12.4); Monocytes Absolute Auto 0.7 X10*3/uL (0.1-1.2); Monocytes Percent Auto 8.8 % (2-11); Neutrophils Absolute Auto 4.7 x10*3/uL (2.0-8.3); Neutrophils Percent Auto 60.7 % (45-73); Platelet Count 196 X10*3/uL (160-400); Red Cell Distribution Width 12.2 % (11.0-16.0); White Blood Count 7.7 X10*3/uL (4.8-10.8)
--- NOTE | 2024-01-13 23:18 | PC.NURSE ---
skin check done by t/w no evidence of contraband or injury
[2024-01-13 23:23] LABS: Alanine Aminotransferase 22 U/L (0-40); Albumin Level 4.1 g/dL (3.5-5.0); Alkaline Phosphatase 81 U/L (39-117); Anion Gap 10 (12-20); Aspartate Amino Transferase 26 U/L (5-37); Bilirubin Total 0.3 mg/dL (0.0-1.0); Blood Urea Nitrogen 11 mg/dL (9-16); Calcium 8.7 mg/dL (8.4-10.2); Carbon Dioxide 30 mmol/L (22-29); Chloride 104 mmol/L (96-108); Creatinine Clr Calc Pharmacy 123.9; Estimated Glomerular Filt Rate > 60; Ethanol < 10 mg/dL; Glucose Random 101 mg/dL (60-115); Potassium 3.5 mmol/L (3.3-5.1); Sodium 140 mmol/L (135-145); Total Protein 6.9 g/dL (6.5-8.0)
[2024-01-13 23:36] LABS: Appearance Urine Clear; Color Urine Yellow; Glucose Urine UA Negative (Negative); Leukocyte Esterase Urine Negative (Negative); Nitrite Urine Negative (Negative); PH 6.5 (5.0-9.0); Specific Gravity - Urine >= 1.030 (1.005-1.025); Urine Blood Negative (Negative); Urine Ketones Trace mg/dL (Negative); Urine Protein Trace mg/dL (Neg-Trace)
[2024-01-13 23:42] LABS: Amphetamine Screen Urine Not Detected (Not Detect); Barbiturates, Urine Not Detected (Not Detect); Benzodiazepines Screen Urine Not Detected (Not Detect); Buprenorphine Scr Not Detected (Not Detect); Cannabinoid Screen Urine Not Detected (Not Detect); Cocaine Screen Urine Not Detected (Not Detect); Fentanyl, urine Not Detected (Not Detect); Methadone Screen, Urine Not Detected (Not Detect); Opiate Screen Urine Not Detected (Not Detect); Oxycodone Screen Urine Not Detected (Not Detect); Phencyclidine Screen Urine Not Detected (Not Detect)
--- NOTE | 2024-01-13 23:58 | ED.PSYCH ---
HPI - Psych General Chief Complaint: Behavioral Concerns Stated Complaint: doesnt feel good Time Seen by Provider: 01/13/24 23:50 Source: patient Limitations: no limitations History of Present Illness ED Provider: Naomi Burton PA-C HPI Narrative: 38-year-old male with a history of anxiety, and disorganized schizophrenia, presents with ?bad moods?. Patient states he currently lives with his mother, they do argue sometimes. His mother told him he should be checked due to his ?bad moods?. The patient does admit to becoming angry and agitated, he sometimes has thoughts of hurting other people. He states ?I am a man, I get angry sometimes?. Patient denies SI, no actual plan to hurt anybody, no drugs or alcohol use. Related Data Previous Rx's ?Medication ?Instructions ?Recorded quetiapine 25 mg tablet 25 mg PO BEDTIME #7 tabs 10/28/23 Allergies Allergy/AdvReac Type Severity Reaction Status Date / Time No Known Allergies Allergy Verified 01/13/24 22:37 Review of Systems Review of Systems: Yes all other systems are reviewed and are negative Constitutional: Constitutional: Denies fever(s) Cardiovascular: Cardiovascular: Denies chest pain and Denies dyspnea Respiratory: Respiratory: Denies dyspnea Gastrointestinal: Gastrointestinal: Denies abdominal pain, Denies nausea and Denies vomiting [facility] Past Medical History Attestation statement: The following information was validated with the patient. Social History Social History Household Members Other:: Uncle Do you presently have visiting nurse or other home services: No Unable to assess alcohol history related to: Unknown Alcohol intake: former Patient Tobacco Use Status: Never used Tobacco e-Cigarette/Vaping Use: Never Used Advance Directives: No Advance Directives Information Provided: Yes service: No Sexual orientation: Straight/Heterosexual Physical Exam Vital Signs: Vital Signs: Last Vital Signs Temp 97.1 F 01/13/24 22:29 Pulse 91 01/13/24 22:29 Resp 18 01/13/24 22:29 BP 170/83 H 01/13/24 22:29 Pulse Ox 98 01/13/24 22:29 O2 Del Method Room Air 01/13/24 22:29 BMI result Body Mass Index 36.7 Const: Other: Alert, overall well in appearance Orientation/consciousness: patient oriented x3 Resp: Other: Nonlabored respiration Cardio: Other: Normal peripheral perfusion Skin: Other: Warm dry no rash Neuro: General: patient oriented x3, no focal motor deficits and CN's II-XI intact bilaterally Psych: Other: Calm cooperative here in the emergency department Medical Decision Making Medical Decision Making MDM Narrative: 38-year-old male with a history of anxiety, and disorganized schizophrenia, presents with ?bad moods?. Patient states he currently lives with his mother, they do argue sometimes. His mother told him he should be checked due to his ?bad moods?. The patient does admit to becoming angry and agitated, he sometimes has thoughts of hurting other people. He states ?I am a man, I get angry sometimes?. Patient denies SI, no actual plan to hurt anybody, no drugs or alcohol use. I have considered the following differential diagnoses: SI, HI, decompensated psychiatric illness, drug/alcohol intoxication Plan: Patient here with vague homicidal ideation/aggression. Screening labs including urine tox and ethanol are in process. We will place a consult with the care team. I have independently reviewed the following tests: Labs: No leukocytosis, not anemic, no electrolyte abnormality, U tox negative, serum ethanol negative Lab Data 01/13/24 23:02 01/13/24 23:02 Labs: Lab Results 01/13/24 01/13/24 Range/Units 23:02 23:22 WBC 7.7 (4.8-10.8) X10*3/uL RBC 4.60 (4.60-5.80) X10*6/uL Hgb 15.0 (14.0-18.0) g/dl Hct 42.5 (42.0-52.0) % MCV 92.4 (80.0-98.0) fL MCH 32.6 (27.0-33.0) pg MCHC 35.3 (31.0-36.0) g/dl RDW 12.2 (11.0-16.0) % Plt Count 196 (160-400) X10*3/uL MPV 11.4 (9.4-12.4) fL Immature Gran % (Auto) 0.3 (0.0-0.4) % Neut % (Auto) 60.7 (45-73) % Lymph % (Auto) 29.4 (20-40) % [place] % (Auto) 8.8 (2-11) % Eos % (Auto) 0.5 (0-4) % Baso % (Auto) 0.3 (0-2) % Lymph # (Auto) 2.3 (1.2-4.9) X10*3/uL [place] # (Auto) 0.7 (0.1-1.2) X10*3/uL Eos # (Auto) 0.0 (0.0-0.4) X10*3/uL Baso # (Auto) 0.0 (0.0-0.2) X10*3/uL Abs Immat Gran (auto) 0.02 (0.00-0.03) X10*3/uL Absolute Neuts (auto) 4.7 (2.0-8.3) x10*3/uL Absolute Nucleated RBC 0.000 (0.0-0.012) X10*3/uL Nucleated RBC % (auto) 0.0 (0.0-0.2) /100WBC Sodium 140 (135-145) mmol/L Potassium 3.5 (3.3-5.1) mmol/L Chloride 104 (96-108) mmol/L Carbon Dioxide 30 H (22-29) mmol/L Anion Gap 10 L (12-20) BUN 11 (9-16) mg/dL Creatinine 1.01 (0.5-1.4) mg/dL Estim Creat Clear Calc 123.9 Estimated GFR > 60 Random Glucose 101 (60-115) mg/dL Calcium 8.7 D (8.4-10.2) mg/dL Total Bilirubin 0.3 (0.0-1.0) mg/dL AST 26 (5-37) U/L ALT 22 (0-40) U/L Alkaline Phosphatase 81 (39-117) U/L Total Protein 6.9 (6.5-8.0) g/dL Albumin 4.1 (3.5-5.0) g/dL Urine Color Yellow Urine Appearance Clear Urine pH 6.5 (5.0-9.0) Ur Specific [place] >= 1.030 H (1.005-1.025) Urine Protein Trace (Neg-Trace) mg/dL Urine Glucose (UA) Negative (Negative) mg/dL Urine Ketones Trace (Negative) mg/dL Urine Blood Negative (Negative) Urine Nitrite Negative (Negative) Ur Leukocyte Esterase Negative (Negative) Urine Opiates Screen Not Detected (Not Detect) Ur Buprenorphine Scrn Not Detected (Not Detect) ng/mL Ur Oxycodone Screen Not Detected (Not Detect) ng/mL Urine Methadone Screen Not Detected (Not Detect) ng/mL Urine Fentanyl Screen Not Detected (Not Detect) Ur Barbiturates Screen Not Detected (Not Detect) Ur Phencyclidine Scrn Not Detected (Not Detect) Ur Amphetamines Screen Not Detected (Not Detect) U Benzodiazepines Scrn Not Detected (Not Detect) Urine Cocaine Screen Not Detected (Not Detect) U Marijuana (THC) Screen Not Detected (Not Detect) Ethyl Alcohol < 10 mg/dL Discharge Plan Discharge Clinical Impression: Agitation, Labile mood Patient Disposition: Still a Patient Prescriptions: No Action quetiapine 25 mg Tablet 25 mg PO BEDTIME Qty: 7 4RF Print Language: Maltese
--- NOTE | 2024-01-14 01:47 | PC.NURSE ---
moms phone [phone]
[2024-01-14 06:16] VITALS: BP 179/112; PULSE 74; RESP 16; O2SAT 97
--- NOTE | 2024-01-14 07:22 | PC.NURSE ---
Assumed care of patient at 0645, patient appears to be in no apparent distress this am, pt took shower and is now eating breakfast, calm and cooperative. Pt aware of plan of care to see CARE team today
[2024-01-14 09:02] VITALS: BP 132/68; PULSE 77; RESP 14; TEMP 36.3; O2SAT 97
== END 2024-01-14 09:06 | disposition home or self-care (01) ==
PROVIDERS: Emergency Provider Internal Medicine
DX: R45.1 Restlessness and agitation (principal); R45.86 Emotional lability; F41.9 Anxiety disorder, unspecified; F25.9 Schizoaffective disorder, unspecified; Z79.899 Other long term (current) drug therapy
CPT/HCPCS: 36415; 80053; 80307; 81003; 85025; 93005; 99284; S9485

== ENCOUNTER → 2024-01-13 23:28 | Outpatient (BNV) | payer MEDICAID, SELFPAY | PROVIDERS: Emergency Provider Internal Medicine; Visit Provider Internal Medicine Cardiovascular Disease | DX: Z01.810 Encounter for preprocedural cardiovascular examination (principal) | CPT/HCPCS: 93010 ==

== ENCOUNTER 2024-01-16 11:54 | Inpatient (IN) | payer MEDICAID, OTHER, SELFPAY ==
--- NOTE | 2024-01-16 11:58 | ED_ITS ---
HPI - Psych General Chief Complaint: Psychiatric Symptoms Stated Complaint: crisis Time Seen by Provider: 01/16/24 12:44 Source: patient, family, RN notes reviewed and old records reviewed Mode of arrival: ambulatory History of Present Illness ED Provider: Nolan Dukes PA-C HPI Narrative: 38 yo M with a PMH of anxiety, schizoaffective disorder, disorganized schizophrenia who was recently seen in the ED on 01/13/24 for agitation presents to the ED for increased agitation and anxiety. Patient's mother states that since his discharge and medication dosage change, the patient has become increasingly agitated & psychotic. Patient not offering subjective input, mother speaking on behalf of patient. Patient denies hallucinations, SI, HI, substance or alcohol use. Related Data Home Medications ?Medication ?Instructions ?Recorded ?Confirmed clonidine HCl 0.1 mg tablet 0.1 mg PO BID 01/16/24 01/16/24 risperidone 2 mg tablet (Risperdal) 2 mg PO BID 01/16/24 01/16/24 sertraline 25 mg tablet 25 mg PO DAILY 01/16/24 01/16/24 trazodone 50 mg PO BEDTIME 01/16/24 01/16/24 Allergies Allergy/AdvReac Type Severity Reaction Status Date / Time No Known Allergies Allergy Verified 01/16/24 12:04 Review of Systems 2 Review of Systems: Yes all other systems are reviewed and are negative Constitutional: Constitutional: Reports as per HPI Neurologic: Denies Abnormal speech present PMFSH Past Medical History Attestation statement: The following information was validated with the patient. Source: old records reviewed Social History Social History Household Members Other:: Uncle Do you presently have visiting nurse or other home services: No Unable to assess alcohol history related to: Refusing to respond Alcohol intake: former Patient Tobacco Use Status: Never used Tobacco e-Cigarette/Vaping Use: Never Used Advance Directives: No Advance Directives Information Provided: No service: No Sexual orientation: Straight/Heterosexual Physical Exam 2 Vital Signs: Vital Signs: Last Vital Signs Temp 97.9 F 01/16/24 12:01 Pulse 108 H 01/16/24 12:01 Resp 18 01/16/24 12:01 BP 148/93 H 01/16/24 12:01 Pulse Ox 97 01/16/24 12:01 O2 Del Method Room Air 01/16/24 12:01 BMI result Body Mass Index 36.0 Const: General: cooperative, healthy appearing and no acute distress O rientation/consciousness: patient oriented x3 Limitations: no limitations HEENT: Head: Yes normal to inspection and Yes atraumatic Ears: hearing grossly normal bilaterally General nose exam: Normal external nose present Face and sinus: Yes normal facial exam Eyes: General: appearance normal, both eyes and all related structures EOM: EOMs intact bilaterally Neck: Neck: Yes normal visual inspection Resp: Effort & Inspection: normal respiratory effort and no respiratory distress Auscultation: clear to auscultation bilaterally Cardio: Rate: regular rate Heart sounds: S1 normal heart sound present and S2 normal heart sound present GI: Inspection: Yes normal to inspection Skin: Rashes: no rashes Wounds: no wounds Neuro: General: patient oriented x3, gait normal, tone normal, moves all extremities, no focal motor deficits and CN's II-XI intact bilaterally C ranial nerves: Yes CN's II-XII intact bilaterally Cognition (Neuro): normal cognition Speech: No Abnormal speech present Gait exam (Neuro): Normal gait present Motor exam (neuro): 5/5 motor strength present throughout Extrem: General: Yes normal to inspection Psych: Speech and movement: Normal speech and movement present Affect: L abile affect present Attitude: cooperative and Avoids eye contact (attititude/behavior) Course Course Course Narrative: This is a Rapid Medical Examination (RME) performed by Chacha Martinez PA-C in triage. Full HPI, ROS, assessment and treatment plan per primary provider in the Main ED. 38 yo male hx of anxiety and disorganized schizophrenia here w/ parents for eval of bad mood . patient refusing to answer questions - history obtained from luxembourgish speaking mother. patient here on 01/13/24, prescribed medications, and discharged. now feeling very anxious, mom states he is difficult to handle . denies si/hi. no etoh or ilicit substance use. + appears agitated, avoids eye contact Plan: labs, ua, uds, medical clearance -labs reassuring. Tox screen negative. Patient medically cleared for CARE team evaluation. Physician observation initiated at 16:42 -[id number]--ED care transferred to OMAR Chen pending CARE team eval Medical Decision Making Medical Decision Making MDM Narrative: 38 yo M with a PMH of anxiety, schizoaffective disorder, disorganized schizophrenia who was recently seen in the ED on 01/13/24 for agitation presents to the ED for increased agitation and anxiety. On exam patient is lying in bed with mother by his side, nontoxic appearing, neurovascularly intact, calm, cooperative, labile affect. Concern for mood disorder vs acute psychosis vs medication issue vs substance abuse. Rule out organic causes. Plan: Labs screening, urine tox, CARE team. Please refer to course for remaining clinical decision making, interpretation of labs/imaging results, and discussions with consultants and/or family members. Differential Diagnosis Differential Diagnoses: The differential diagnosis associated with the presentation includes As above Admission/Observation Consideration of admission/observation: Escalation of care including admission/observation considered Consult Healthcare Provider Management of the patient was discussed with: Behavioral Health Provider Lab Data MDM Lab Attestation statement: I reviewed the patient's lab results. 01/16/24 14:02 01/16/24 14:02 Labs: Lab Results 01/16/24 01/16/24 Range/Units 12:56 14:02 WBC 8.4 (4.8-10.8) X10*3/uL RBC 4.57 L (4.60-5.80) X10*6/uL Hgb 14.5 (14.0-18.0) g/dl Hct 42.2 (42.0-52.0) % MCV 92.3 (80.0-98.0) fL MCH 31.7 (27.0-33.0) pg MCHC 34.4 (31.0-36.0) g/dl RDW 12.3 (11.0-16.0) % Plt Count 182 (160-400) X10*3/uL MPV 11.1 (9.4-12.4) fL Immature Gran % (Auto) 0.2 (0.0-0.4) % Neut % (Auto) 77.9 H (45-73) % Lymph % (Auto) 14.8 L (20-40) % [place] % (Auto) 6.8 (2-11) % Eos % (Auto) 0.1 (0-4) % Baso % (Auto) 0.2 (0-2) % Lymph # (Auto) 1.2 (1.2-4.9) X10*3/uL [place] # (Auto) 0.6 (0.1-1.2) X10*3/uL Eos # (Auto) 0.0 (0.0-0.4) X10*3/uL Baso # (Auto) 0.0 (0.0-0.2) X10*3/uL Abs Immat Gran (auto) 0.02 (0.00-0.03) X10*3/uL Absolute Neuts (auto) 6.5 (2.0-8.3) x10*3/uL Absolute Nucleated RBC 0.000 (0.0-0.012) X10*3/uL Nucleated RBC % (auto) 0.0 (0.0-0.2) /100WBC Sodium 138 (135-145) mmol/L Potassium 3.7 (3.3-5.1) mmol/L Chloride 103 (96-108) mmol/L Carbon Dioxide 28 (22-29) mmol/L Anion Gap 11 L (12-20) BUN 5 L (9-16) mg/dL Creatinine 0.84 (0.5-1.4) mg/dL Estim Creat Clear Calc 152.0 Estimated GFR > 60 Random Glucose 103 (60-115) mg/dL Calcium 9.2 (8.4-10.2) mg/dL Magnesium 1.8 (1.6-2.6) mg/dL Total Bilirubin 0.3 (0.0-1.0) mg/dL AST 23 (5-37) U/L ALT 21 (0-40) U/L Alkaline Phosphatase 80 (39-117) U/L Total Protein 6.8 (6.5-8.0) g/dL Albumin 4.1 (3.5-5.0) g/dL Lipase 12 (8-78) U/L Urine Color Yellow Urine Appearance Clear Urine pH 8.0 (5.0-9.0) Ur Specific [place] 1.010 (1.005-1.025) Urine Protein Negative (Neg-Trace) mg/dL Urine Glucose (UA) Negative (Negative) mg/dL Urine Ketones Negative (Negative) mg/dL Urine Blood Negative (Negative) Urine Nitrite Negative (Negative) Ur Leukocyte Esterase Negative (Negative) Salicylates < 5.0 L (15-30) mg/dL Urine Opiates Screen Not Detected (Not Detect) Ur Buprenorphine Scrn Not Detected (Not Detect) ng/mL Ur Oxycodone Screen Not Detected (Not Detect) ng/mL Urine Methadone Screen Not Detected (Not Detect) ng/mL Urine Fentanyl Screen Not Detected (Not Detect) Acetaminophen < 3 (<30) mcg/mL Ur Barbiturates Screen Not Detected (Not Detect) Ur Phencyclidine Scrn Not Detected (Not Detect) Ur Amphetamines Screen Not Detected (Not Detect) U Benzodiazepines Scrn Not Detected (Not Detect) Urine Cocaine Screen Not Detected (Not Detect) U Marijuana (THC) Screen Not Detected (Not Detect) Ethyl Alcohol < 10 mg/dL Radiology Impression Discussion of test interpretation with radiology: I have reviewed the radiologist's reading. Independent Historian Clinical information obtained from an independent historian. History obtained from or confirmed by: Other (Mother) External Record Review External record reviewed: Inpatient record, Office record, Outpatient record, Prior outpatient labs, Prior outpatient radiology, Primary care record and Outside ED record Tests considered The following testing was considered but not selected: As above Social Determinants Patient?s care significantly limited by Social Determinants of Health including: Alcoholism and drug addiction in family and Problems related to primary support group Discharge Plan Discharge Clinical Impression: Agitation Patient Disposition: Still a Patient Prescriptions: No Action clonidine HCl 0.1 mg Tablet 0.1 mg PO BID risperidone [Risperdal] 2 mg Tablet 2 mg PO BID sertraline 25 mg Tablet 25 mg PO DAILY trazodone 50 mg PO BEDTIME Print Language: Welsh
[2024-01-16 12:01] VITALS: BP 148/93; PULSE 108; RESP 18; TEMP 36.6; O2SAT 97; BMI 36.0
[2024-01-16 13:06] LABS: Appearance Urine Clear; Color Urine Yellow; Glucose Urine UA Negative (Negative); Leukocyte Esterase Urine Negative (Negative); Nitrite Urine Negative (Negative); Urine Blood Negative (Negative); Urine Ketones Negative (Negative); Urine Protein Negative (Neg-Trace)
[2024-01-16 13:14] LABS: Amphetamine Screen Urine Not Detected (Not Detect); Barbiturates, Urine Not Detected (Not Detect); Benzodiazepines Screen Urine Not Detected (Not Detect); Buprenorphine Scr Not Detected (Not Detect); Cannabinoid Screen Urine Not Detected (Not Detect); Cocaine Screen Urine Not Detected (Not Detect); Fentanyl, urine Not Detected (Not Detect); Methadone Screen, Urine Not Detected (Not Detect); Opiate Screen Urine Not Detected (Not Detect); Oxycodone Screen Urine Not Detected (Not Detect); Phencyclidine Screen Urine Not Detected (Not Detect)
[2024-01-16 14:07] LABS: MANUAL DIFF FLAG NO
[2024-01-16 14:15] LABS: Basophils Percent Auto 0.2 % (0-2); Eosinophils Percent Auto 0.1 % (0-4); Hematocrit 42.2 % (42.0-52.0); Hemoglobin 14.5 g/dl (14.0-18.0); Imm Gran Abs Auto 0.02 X10*3/uL (0.00-0.03); Imm Gran Pct Auto 0.2 % (0.0-0.4); Lymphocytes Absolute Auto 1.2 X10*3/uL (1.2-4.9); Lymphocytes Percent Auto 14.8 % (20-40); Mean Corpuscular HGB Conc 34.4 g/dl (31.0-36.0); Mean Corpuscular Hemoglobin 31.7 pg (27.0-33.0); Mean Corpuscular Volume 92.3 fL (80.0-98.0); Mean Platelet Volume 11.1 fL (9.4-12.4); Monocytes Absolute Auto 0.6 X10*3/uL (0.1-1.2); Monocytes Percent Auto 6.8 % (2-11); Neutrophils Absolute Auto 6.5 x10*3/uL (2.0-8.3); Neutrophils Percent Auto 77.9 % (45-73); Platelet Count 182 X10*3/uL (160-400); Red Blood Count 4.57 X10*6/uL (4.60-5.80); Red Cell Distribution Width 12.3 % (11.0-16.0); White Blood Count 8.4 X10*3/uL (4.8-10.8)
--- NOTE | 2024-01-16 14:39 | PC.NURSE ---
continues to rest quietly in bed with mom at bedside. awaiting care team consult
[2024-01-16 14:40] LABS: Acetaminophen LAB < 3 mcg/mL (<30); Alanine Aminotransferase 21 U/L (0-40); Albumin Level 4.1 g/dL (3.5-5.0); Alkaline Phosphatase 80 U/L (39-117); Anion Gap 11 (12-20); Aspartate Amino Transferase 23 U/L (5-37); Bilirubin Total 0.3 mg/dL (0.0-1.0); Blood Urea Nitrogen 5 mg/dL (9-16); Calcium 9.2 mg/dL (8.4-10.2); Carbon Dioxide 28 mmol/L (22-29); Chloride 103 mmol/L (96-108); Estimated Glomerular Filt Rate > 60; Ethanol < 10 mg/dL; Glucose Random 103 mg/dL (60-115); Lipase 12 U/L (8-78); Magnesium 1.8 mg/dL (1.6-2.6); Potassium 3.7 mmol/L (3.3-5.1); Salicylate < 5.0 mg/dL (15-30); Sodium 138 mmol/L (135-145); Total Protein 6.8 g/dL (6.5-8.0)
--- NOTE | 2024-01-16 15:14 | MHC.EDTECH ---
patient requested something to eat, sandwich and some snacks were given, pt has visitors at bedside. pt is cooperative and calm
--- NOTE | 2024-01-16 16:55 | PC.NURSE ---
resting queitly. no complaints at this time. unlabore resp. has had PO food/liquids. Parents were visiting and are now heading home to recieve phone call from CARE team. contact info updated in chart. Mom states patient is med compliant
[2024-01-16 17:44] LABS: Influenza A PCR NEGATIVE (Negative); Influenza B PCR NEGATIVE (Negative); Resp Syncy Virus RNA Qual PCR NEGATIVE (Negative); SARS COV2 PCR INHOUSE NEGATIVE (Negative)
--- NOTE | 2024-01-16 20:15 | MHC.CARE ---
Pt will be deemed an [facility] bedsearch. Section 12a placed in chart.
--- NOTE | 2024-01-16 21:42 | PC.NURSE ---
uncle russ's phone [phone]
[2024-01-16] MEDS: traZODone HCL 50 MG TABLET PO (21:57)
[2024-01-16 23:28] VITALS: BP 148/93
[2024-01-16] MEDS: cloNIDine HCL 0.1 MG TABLET PO (23:28)
[2024-01-16] MEDS: risperiDONE 2 MG TABLET PO (23:29)
[2024-01-17 08:13] VITALS: BP 127/85; PULSE 101; RESP 18; TEMP 36.9; O2SAT 96
[2024-01-17] MEDS: risperiDONE 2 MG TABLET PO ×2 (08:42→20:28)
[2024-01-17] MEDS: Sertraline HCL 25 MG TABLET PO (08:42)
[2024-01-17] MEDS: cloNIDine HCL 0.1 MG TABLET PO ×2 (08:43→20:28)
--- NOTE | 2024-01-17 13:42 | PHA.MEDREC ---
Pharmacy Consult ? Medication Reconciliation Pharmacy has reviewed the medication reconciliation completed by nursing. Medications match claims history.
[2024-01-17 14:00] VITALS: BP 158/80; PULSE 89; RESP 16; TEMP 37; O2SAT 97
[2024-01-17 14:13] VITALS: BMI 34.1
[2024-01-17] MEDS: hydrOXYzine HCL 25 MG TABLET PO ×2 (14:20→20:28)
--- NOTE | 2024-01-17 14:40 | PC.NURSE ---
pt denies being a smoker and refused flu shot
--- NOTE | 2024-01-17 16:06 | PC.NURSE ---
Pt arrived on the unit at 1358 from [facility] ED. Pt was on 15 minute safety checks at time of arrival. Pt is very confused/disorganized at time of arrival and couldnt tell RN how he got here or why he was here other than to state psychiatric reasons . Pt wasnt sure if mother or uncle brought him to the hospital, it appears both family members provided collateral info to ED staff as pt was unable to. Pt was unable to answer most questions logically at time of admission, did a lot of mumbling, saying ummm and offered to call his mother to get the answers to admission questions. Pt did state he doesnt drink ETOH, no drug or cigarette use. Pt unable to answer questions about taking meds prior to hospitalization. When arriving on the unit pt was told he would have to change director his clothes, pt began to remove clothing right there in the [place]. Pt attempted to be cooperative, but did not know the answer to any question. Pt gave verbal consent to talk to mom, unable to sign release at this time. Unable to participate in safety tool at this time d/t mental status. Pt has accepted medications offered to him.
[2024-01-17] MEDS: OLANZapine 5 MG TABLET PO (18:29)
[2024-01-17 19:49] VITALS: BP 167/97; PULSE 88; RESP 18; TEMP 36.6; O2SAT 97
[2024-01-17] MEDS: traZODone HCL 50 MG TABLET PO (20:28)
--- NOTE | 2024-01-18 08:03 | HO.PSYADMNOT ---
HPI Date of Service: 01/18/24 Chief Complaint: psychosis Sources of Information: patient interviewed, chart reviewed and crisis/core team assessment reviewed Additional Sources of Information: I attempted to contact his mother but I was not able to reach her. HPI Subjective Notes: Conditional Voluntary Narrative: Shivam is a 38-year-old , single, unemployed man with history of psychosis. He was brought to the emergency room by his mother because of marked disorganization, agitation. He was seen recently in the emergency room on 01/13/2024 for agitation but was discharged. He has also been more psychotic and disorganized. He was hospitalized in October. He is unable to give any pertinent and coherent information. He was seen with an historian dramatic arts. He denies any auditory or visual hallucinations. No overt delusions.. He has not been sleeping much. Whether he has been taking his medications at all or not is unclear. He does not appear to be connected to any clinics that he has been going to. He was not a management problem in the [facility]. He was observed to be hyper alert and vigilant. He denies any substance use or abuse and tox screen was negative. Past Psychiatric History: IP: He has had 1 or 2 inpatient hospitalizations, the last time in October and this unit OP: Denies current alliance Med Trials: Risperdal Medical Evaluation Reviewed: Yes [facility] Narrative: No active disease Family History: declined to discuss --uncle uses klonopin Social History: Unable to respond appropriately to questions or give much information. He lives with his mother and there is also an uncle that is involved in their lives. Substance History: None Trauma History: Unknown and unobtainable Diagnostics Vital Signs (24Hr): Vital Signs - 24 hr 01/17/24 08:13 01/17/24 14:00 01/17/24 19:49 Temperature 98.4 F 98.6 F 97.8 F Pulse Rate 101 H 89 88 Respiratory Rate 18 16 18 Blood Pressure 127/85 158/80 H 167/97 H Pulse Oximetry 96 97 97 Oxygen Delivery Method Room Air Room Air Room Air BMI result Body Mass Index 34.1 Labs 01/16/24 14:02 01/16/24 14:02 Labs: Laboratory Results - last 48 hr 01/16/24 01/16/24 01/16/24 12:56 14:02 16:57 WBC 8.4 RBC 4.57 L Hgb 14.5 Hct 42.2 MCV 92.3 MCH 31.7 MCHC 34.4 RDW 12.3 Plt Count 182 MPV 11.1 Immature Gran % (Auto) 0.2 Neut % (Auto) 77.9 H Lymph % (Auto) 14.8 L [place] % (Auto) 6.8 Eos % (Auto) 0.1 Baso % (Auto) 0.2 Lymph # (Auto) 1.2 [place] # (Auto) 0.6 Eos # (Auto) 0.0 Baso # (Auto) 0.0 Abs Immat Gran (auto) 0.02 Absolute Neuts (auto) 6.5 Absolute Nucleated RBC 0.000 Nucleated RBC % (auto) 0.0 Sodium 138 Potassium 3.7 Chloride 103 Carbon Dioxide 28 Anion Gap 11 L BUN 5 L Creatinine 0.84 Estim Creat Clear Calc 152.0 Estimated GFR > 60 Random Glucose 103 Calcium 9.2 Magnesium 1.8 Total Bilirubin 0.3 AST 23 ALT 21 Alkaline Phosphatase 80 Total Protein 6.8 Albumin 4.1 Lipase 12 Urine Color Yellow Urine Appearance Clear Urine pH 8.0 Ur Specific [place] 1.010 Urine Protein Negative Urine Glucose (UA) Negative Urine Ketones Negative Urine Blood Negative Urine Nitrite Negative Ur Leukocyte Esterase Negative Salicylates < 5.0 L Urine Opiates Screen Not Detected Ur Buprenorphine Scrn Not Detected Ur Oxycodone Screen Not Detected Urine Methadone Screen Not Detected Urine Fentanyl Screen Not Detected Acetaminophen < 3 Ur Barbiturates Screen Not Detected Ur Phencyclidine Scrn Not Detected Ur Amphetamines Screen Not Detected U Benzodiazepines Scrn Not Detected Urine Cocaine Screen Not Detected U Marijuana (THC) Screen Not Detected Ethyl Alcohol < 10 Influenza Type A (PCR) NEGATIVE Influenza Type B (PCR) NEGATIVE RSV RNA Qual (PCR) NEGATIVE SARS-CoV-2 RNA (RT-PCR) NEGATIVE Meds/Allergies Meds Home Medications ?Medication ?Instructions ?Recorded ?Confirmed ?Type clonidine HCl 0.1 mg tablet 0.1 mg PO BID 01/16/24 01/16/24 History risperidone 2 mg tablet (Risperdal) 2 mg PO BID 01/16/24 01/16/24 History sertraline 25 mg tablet 25 mg PO DAILY 01/16/24 01/16/24 History trazodone 50 mg PO BEDTIME 01/16/24 01/16/24 History Allergies Allergies Allergy/AdvReac Type Severity Reaction Status Date / Time No Known Allergies Allergy Verified 01/16/24 12:04 Mental Status Exam Mental Status Exam Narrative: Patient was seen the morning after his admission. He was seen with an historian dramatic arts. He is alert, oriented to person and place, not to time. He was in hospital attire. Speech is normal. Moderate eye contact. He is unable to give much pertinent and coherent information or response to questions. He appears somewhat anxious. He denies any auditory or visual hallucination but may be responding to internal stimuli. No overt delusions detected. Cognitively he is very disorganized and unable to give much information, frequently referring me to his family, records or asking for his phone to look up things. He denies any SI/HI. History of these is unknown. 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 He meets criteria for IP LOC. His medications were resumed including Risperdal which I increased to 3 mg b.i.d.. It would be useful to get some collateral information from his family this week. He is on a CV. He is on 15 minute checks. Patient educated on: diagnosis and medication risk/benefits Reason for continued inpatient stay Substantial Risk for: rapid decompensation and med/psych decompensation Statement Statement: I have reviewed the history and physical and performed a pertinent examination on my patient. No changes have occurred unless specified. If the History and Physical was not performed prior to admission, the Hospitalist's service will be consulted for completing the admission physical. Time Spent With Patient Time: Total time managing care of this patient today ____ minutes.
[2024-01-18] MEDS: risperiDONE 3 MG TABLET PO ×2 (08:45→20:55)
[2024-01-18] MEDS: cloNIDine HCL 0.1 MG TABLET PO ×2 (08:45→20:57)
[2024-01-18] MEDS: Sertraline HCL 25 MG TABLET PO (08:45)
[2024-01-18 08:52] LABS: Alanine Aminotransferase 21 U/L (0-40); Albumin Level 4.7 g/dL (3.5-5.0); Alkaline Phosphatase 96 U/L (39-117); Anion Gap 13 (12-20); Aspartate Amino Transferase 27 U/L (5-37); Bilirubin Total 0.8 mg/dL (0.0-1.0); Blood Urea Nitrogen 8 mg/dL (9-16); Carbon Dioxide 30 mmol/L (22-29); Chloride 100 mmol/L (96-108); Cholesterol 227 mg/dL (<200); Creatinine Clr Calc Pharmacy 146.3; Estimated Glomerular Filt Rate > 60; Glucose Fasting 104 mg/dL (60-99); HDL Cholesterol 41 mg/dL (>40); LDL Cholesterol Calculated 162 mg/dL (<100); Potassium 3.9 mmol/L (3.3-5.1); Sodium 139 mmol/L (135-145); Total Protein 7.8 g/dL (6.5-8.0); Triglycerides 123 mg/dL (<150)
[2024-01-18 10:19] VITALS: BP 141/91; PULSE 107; RESP 18; TEMP 36.8; O2SAT 96
[2024-01-18] MEDS: hydrOXYzine HCL 25 MG TABLET PO (13:32)
[2024-01-18 20:00] VITALS: BP 185/95; PULSE 113; TEMP 36.2; O2SAT 97
[2024-01-18] MEDS: traZODone HCL 50 MG TABLET PO (20:53)
[2024-01-19 08:42] VITALS: BP 146/68; PULSE 101; RESP 16; TEMP 36.7; O2SAT 96
[2024-01-19] MEDS: Sertraline HCL 25 MG TABLET PO (08:44)
[2024-01-19] MEDS: cloNIDine HCL 0.1 MG TABLET PO ×2 (08:44→20:29)
[2024-01-19] MEDS: risperiDONE 3 MG TABLET PO ×2 (08:45→20:29)
--- NOTE | 2024-01-19 10:36 | HO.PSYCHPN ---
Subjective Subjective Date of Service: 01/19/24 Reason For Visit: psychosis Subjective Notes: Conditional Voluntary Interim History: Pt had some difficulty sleeping last night. Met with Pt and his uncle at p's request. Pt reports he came to the hospital because he was feeling anxious and was not able to sleep. Uncle- witth permission of pt, also shares that pt was paranoid and suspicious of others and thought people were trying to harm him ,which pt agrees. Pt also reports hearing voices, but would not elaborate. He continued to referred to anxiety as main symptom. He reports last night he slept better, but still feeling anxious. We discussed adding clonazepam 0.5mg po BID for anxiety secondary to psychosis and delusions. He has been visible, no aggression towards self or others. Mental Status Exam Mental Status Exam Narrative: Appearance: wearing hospital gown, fair hygiene, in NAD Behavior: cooperative Psychomotor: no agitation or retardation noted Speech: clear, normal rate/rhythm/volume, spontaneous TP: linear TC: feeling better Mood: better Affect: congruent, calmer, SI: denies HI: denies VH/AH: not fully forthcoming, seems like he still hears voices Delusions: feeling safer Insight/judgment: fair x 2. memory/cog: alert, oriented x 3. Diagnostics Vital Signs (24Hr): Vital Signs - 24 hr 01/18/24 20:00 01/19/24 08:42 Temperature 97.2 F 98.0 F Pulse Rate 113 H 101 H Respiratory Rate 16 Blood Pressure 185/95 H 146/68 H Pulse Oximetry 97 96 Oxygen Delivery Method Room Air Room Air BMI result Body Mass Index 34.1 Labs 01/16/24 14:02 01/18/24 08:11 Labs: Laboratory Results - last 48 hr 01/18/24 08:11 Sodium 139 Potassium 3.9 Chloride 100 Carbon Dioxide 30 H Anion Gap 13 BUN 8 L Creatinine 0.85 Estim Creat Clear Calc 146.3 Estimated GFR > 60 Fasting Glucose 104 H Calcium 10.0 D Total Bilirubin 0.8 AST 27 ALT 21 Alkaline Phosphatase 96 Total Protein 7.8 Albumin 4.7 Triglycerides 123 Cholesterol 227 H LDL Cholesterol, Calc 162 H HDL Cholesterol 41 Medications Medications Current Medications Acetaminophen (Acetaminophen 325 Mg Tablet) 650 mg PO Q6H PRN PRN Reason: Headache/Pain Mild Scale (1-3) Al Hydroxide/Mg Hydroxide (Magnesium Hydrox/Alum Hydrox 30 Ml Oral.Susp) 30 ml PO Q6H PRN PRN Reason: Heartburn/Nausea Chlorpromazine HCl (Chlorpromazine Hcl 100 Mg Tablet) 100 mg PO BID PRN PRN Reason: agitation Clonidine HCl (Clonidine Hcl 0.1 Mg Tablet) 0.1 mg PO BID [facility]; Protocol Last Admin: 01/19/24 08:44 Dose: 0.1 mg Hydroxyzine HCl (Hydroxyzine Hcl 25 Mg Tablet) 25 mg PO Q6H PRN PRN Reason: Anxiety Last Admin: 01/18/24 13:32 Dose: 25 mg Magnesium Hydroxide (Milk Of Magnesia 30 Ml Oral.Susp) 30 ml PO DAILY PRN PRN Reason: Constipation Risperidone (Risperidone 3 Mg Tablet) 3 mg PO BID [facility] Last Admin: 01/19/24 08:45 Dose: 3 mg Sertraline HCl (Sertraline Hcl 25 Mg Tablet) 25 mg PO DAILY [facility] Last Admin: 01/19/24 08:44 Dose: 25 mg Trazodone HCl (Trazodone Hcl 50 Mg Tablet) 50 mg PO BEDTIME MRX1 PRN PRN Reason: Insomnia Last Admin: 01/18/24 20:53 Dose: 50 mg Allergies Allergies Allergy/AdvReac Type Severity Reaction Status Date / Time No Known Allergies Allergy Verified 01/16/24 12:04 Assessment & Plan Assessment & Plan (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 He meets criteria for IP LOC. His medications were resumed including Risperdal which I increased to 3 mg b.i.d.. It would be useful to get some collateral information from his family this week. He is on a CV. He is on 15 minute checks. 01/18- will dc sertraline 25mg po daily. add clonazepam 0.5mg po BID. continue risperidone 3mg po BID. Continue clonidine 0.1mg po BID. BP has been consistently high, may need additional BP med. His cholesterol and LDL also high, may benefit from statin. Reason for continued inpatient stay Substantial Risk for: inability to function Time Spent With Patient Time: Total time managing care of this patient today ____ minutes.
[2024-01-19] MEDS: hydrOXYzine HCL 25 MG TABLET PO (16:14)
[2024-01-19 19:48] VITALS: BP 158/82; PULSE 92; RESP 16; TEMP 36.8; O2SAT 96
[2024-01-19] MEDS: clonazePAM 0.5 MG TABLET PO (20:29)
[2024-01-19] MEDS: traZODone HCL 50 MG TABLET PO (20:29)
[2024-01-20 08:39] VITALS: BP 130/99; PULSE 112; RESP 16; TEMP 36.9; O2SAT 95
[2024-01-20] MEDS: risperiDONE 3 MG TABLET PO ×2 (08:40→20:19)
[2024-01-20] MEDS: clonazePAM 0.5 MG TABLET PO ×2 (08:41→20:19)
[2024-01-20] MEDS: cloNIDine HCL 0.1 MG TABLET PO ×2 (08:41→20:19)
--- NOTE | 2024-01-20 16:50 | HO.PSYCHPN ---
Subjective Subjective Date of Service: 01/20/24 Reason For Visit: psychosis Subjective Notes: Conditional Voluntary Healthcare Proxy: No Guardianship: No Medical Problems Affecting Mental Status: No Interim History: Met with pt, mother, team, [facility] Occupational Therapy Assistant. Pt with somatic,paranoid sx. Reports meds are helpful for him to sleep and relax. Reports GERD sx- pepcid ordered. Discussed anxiety and treatments that have been helpful Mother requests letter for [employer] stating pt is currently hospitalized which will be provided. Mother also requests pt have out patient services scheduled. Pt is pushing to discharge. We discussed his last admission and needing to make sure medicines are effective and tolerated. He agrees to remain until 01/24. Team reports, in milieu, pt shows evidence of response to internal stimuli and some paranoia. Pt did approach tw later in the day, demanding discharge and wanting to be able to leave immediately. We discussed again meeting with his mother on 01/20 which he agreed to. Medication Compliance: Yes Side effects from medications: No Attending Groups: Intermittent Review of Systems Acute medical concerns: No Medical Review of Systems: unchanged Review of Systems Review of Systems Yes all other systems are reviewed and are negative Mental Status Exam Mental Status Exam Patient Appearance: Appropriate Patient Orientation: Person, Place, Time and Situation Level of Consciousness: Alert Patient Behavior: Appropriate, Talkative and Good Eye Contact Mood Description: Suspicious Affect Description: Suspicious and Labile Patient Cognition Impaired: No Ability to Follow Directions: Good Speech Pattern: Spontaneous Speech Memory Description: Episodic Impaired Hallucinations: Auditory Delusions: Paranoid Ideation and Present Thought Process: Distracted Thought Content: positive for Circumstantial and positive for Suicidal Ideation (denies) Abnormal Motor Activity Signs and Symptoms: Restlessness Judgement: Fair Diagnostics Vital Signs (24Hr): Vital Signs - 24 hr 01/19/24 19:48 01/20/24 08:39 Temperature 98.3 F 98.4 F Pulse Rate 92 112 H Respiratory Rate 16 16 Blood Pressure 158/82 H 130/99 H Pulse Oximetry 96 95 Oxygen Delivery Method Room Air Room Air BMI result Body Mass Index 34.1 Labs 01/16/24 14:02 01/18/24 08:11 Medications Medications Current Medications Acetaminophen (Acetaminophen 325 Mg Tablet) 650 mg PO Q6H PRN PRN Reason: Headache/Pain Mild Scale (1-3) Al Hydroxide/Mg Hydroxide (Magnesium Hydrox/Alum Hydrox 30 Ml Oral.Susp) 30 ml PO Q6H PRN PRN Reason: Heartburn/Nausea Clonazepam (Clonazepam 0.5 Mg Tablet) 0.5 mg PO BID [facility] Last Admin: 01/20/24 08:41 Dose: 0.5 mg Clonidine HCl (Clonidine Hcl 0.1 Mg Tablet) 0.1 mg PO BID [facility]; Protocol Last Admin: 01/20/24 08:41 Dose: 0.1 mg Famotidine (Famotidine 20 Mg Tablet) 20 mg PO BID [facility] Hydroxyzine HCl (Hydroxyzine Hcl 25 Mg Tablet) 25 mg PO Q6H PRN PRN Reason: Anxiety Last Admin: 01/19/24 16:14 Dose: 25 mg Magnesium Hydroxide (Milk Of Magnesia 30 Ml Oral.Susp) 30 ml PO DAILY PRN PRN Reason: Constipation Risperidone (Risperidone 3 Mg Tablet) 3 mg PO BID [facility] Last Admin: 01/20/24 08:40 Dose: 3 mg Trazodone HCl (Trazodone Hcl 50 Mg Tablet) 50 mg PO BEDTIME MRX1 PRN PRN Reason: Insomnia Last Admin: 01/18/24 20:53 Dose: 50 mg Trazodone HCl (Trazodone Hcl 50 Mg Tablet) 50 mg PO BEDTIME [facility] Last Admin: 01/19/24 20:29 Dose: 50 mg Allergies Allergies Allergy/AdvReac Type Severity Reaction Status Date / Time No Known Allergies Allergy Verified 01/16/24 12:04 Assessment & Plan Assessment & Plan (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 He meets criteria for IP LOC. His medications were resumed including Risperdal which I increased to 3 mg b.i.d.. It would be useful to get some collateral information from his family this week. He is on a CV. He is on 15 minute checks. 01/18- will dc sertraline 25mg po daily. add clonazepam 0.5mg po BID. continue risperidone 3mg po BID. Continue clonidine 0.1mg po BID. BP has been consistently high, may need additional BP med. His cholesterol and LDL also high, may benefit from statin. 01/19: Continue tx. Patient educated on: therapeutic strategies Guardian/Caregiver educated on: therapeutic strategies Informed Consent: understands Reason for continued inpatient stay Substantial Risk for: inability to function and rapid decompensation Time Spent With Patient Time: Total time managing care of this patient today ____ minutes.
[2024-01-20 20:00] VITALS: BP 160/88; PULSE 98; RESP 16; TEMP 36.7; O2SAT 97
[2024-01-20 20:19] VITALS: BP 160/88
[2024-01-20] MEDS: Famotidine 20 MG TABLET PO (20:19)
[2024-01-21] MEDS: Famotidine 20 MG TABLET PO ×2 (08:34→19:52)
[2024-01-21] MEDS: risperiDONE 3 MG TABLET PO ×2 (08:34→19:52)
[2024-01-21] MEDS: cloNIDine HCL 0.1 MG TABLET PO ×2 (08:34→19:52)
[2024-01-21] MEDS: clonazePAM 0.5 MG TABLET PO ×2 (08:34→19:52)
[2024-01-21 08:41] VITALS: BP 128/80; PULSE 91; RESP 18; TEMP 36.3; O2SAT 94
[2024-01-21 10:29] VITALS: BMI 33.9
--- NOTE | 2024-01-21 17:13 | HO.PSYCHPN ---
Subjective Subjective Date of Service: 01/21/24 Reason For Visit: psychosis Subjective Notes: Conditional Voluntary Healthcare Proxy: No Guardianship: No Medical Problems Affecting Mental Status: No Interim History: Met with pt, his mother, team and [facility] Outsole Beveler. Pt is struggling with being in hospital and with compliance with medications. He is asking to discharge on 01/21. Mother encouraged him to remain until 01/24 which he agreed to. He remains paranoid, guarded, with some internal preoccupation and on edge, however symptoms overall appear to be decreasing. Letter was provided at mother's request for [facility]. BP remains elevated at times. Medication Compliance: Yes Side effects from medications: No Attending Groups: Intermittent Review of Systems Acute medical concerns: No Medical Review of Systems: unchanged Review of Systems Review of Systems Yes all other systems are reviewed and are negative (denies) Mental Status Exam Mental Status Exam Patient Appearance: Appropriate Patient Orientation: Person, Place, Time and Situation Level of Consciousness: Alert Patient Behavior: Appropriate, Talkative and Good Eye Contact Mood Description: Suspicious Affect Description: Suspicious and Labile Patient Cognition Impaired: No Ability to Follow Directions: Good Speech Pattern: Spontaneous Speech Memory Description: Episodic Impaired Hallucinations: Auditory Delusions: Paranoid Ideation and Present Thought Process: Distracted Thought Content: positive for Circumstantial and positive for Suicidal Ideation (denies) Abnormal Motor Activity Signs and Symptoms: Restlessness Judgement: Fair Diagnostics Vital Signs (24Hr): Vital Signs - 24 hr 01/20/24 20:00 01/20/24 20:19 01/21/24 08:41 Temperature 98.0 F 97.4 F Pulse Rate 98 91 Respiratory Rate 16 18 Blood Pressure 160/88 H 160/88 H 128/80 Pulse Oximetry 97 94 Oxygen Delivery Method Room Air Room Air BMI result Body Mass Index 33.9 Labs 01/16/24 14:02 01/18/24 08:11 Medications Medications Current Medications Acetaminophen (Acetaminophen 325 Mg Tablet) 650 mg PO Q6H PRN PRN Reason: Headache/Pain Mild Scale (1-3) Al Hydroxide/Mg Hydroxide (Magnesium Hydrox/Alum Hydrox 30 Ml Oral.Susp) 30 ml PO Q6H PRN PRN Reason: Heartburn/Nausea Clonazepam (Clonazepam 0.5 Mg Tablet) 0.5 mg PO BID [facility] Last Admin: 01/21/24 08:34 Dose: 0.5 mg Clonidine HCl (Clonidine Hcl 0.1 Mg Tablet) 0.1 mg PO BID [facility]; Protocol Last Admin: 01/21/24 08:34 Dose: 0.1 mg Famotidine (Famotidine 20 Mg Tablet) 20 mg PO BID [facility] Last Admin: 01/21/24 08:34 Dose: 20 mg Hydroxyzine HCl (Hydroxyzine Hcl 25 Mg Tablet) 25 mg PO Q6H PRN PRN Reason: Anxiety Last Admin: 01/19/24 16:14 Dose: 25 mg Magnesium Hydroxide (Milk Of Magnesia 30 Ml Oral.Susp) 30 ml PO DAILY PRN PRN Reason: Constipation Risperidone (Risperidone 3 Mg Tablet) 3 mg PO BID [facility] Last Admin: 01/21/24 08:34 Dose: 3 mg Trazodone HCl (Trazodone Hcl 50 Mg Tablet) 50 mg PO BEDTIME MRX1 PRN PRN Reason: Insomnia Last Admin: 01/18/24 20:53 Dose: 50 mg Trazodone HCl (Trazodone Hcl 50 Mg Tablet) 50 mg PO BEDTIME [facility] Last Admin: 01/20/24 20:46 Dose: Not Given Allergies Allergies Allergy/AdvReac Type Severity Reaction Status Date / Time No Known Allergies Allergy Verified 01/16/24 12:04 Assessment & Plan Assessment & Plan (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 He meets criteria for IP LOC. His medications were resumed including Risperdal which I increased to 3 mg b.i.d.. It would be useful to get some collateral information from his family this week. He is on a CV. He is on 15 minute checks. 01/18- will dc sertraline 25mg po daily. add clonazepam 0.5mg po BID. continue risperidone 3mg po BID. Continue clonidine 0.1mg po BID. BP has been consistently high, may need additional BP med. His cholesterol and LDL also high, may benefit from statin. 01/19: Continue tx. 01/20: Continue tx. Reason for continued inpatient stay Substantial Risk for: rapid decompensation Time Spent With Patient Time: Total time managing care of this patient today ____ minutes.
[2024-01-21 19:52] VITALS: BP 141/66
[2024-01-21 20:00] VITALS: BP 141/66; PULSE 75; RESP 16; TEMP 36.4; O2SAT 97
[2024-01-22 08:00] VITALS: BP 123/85; PULSE 90; RESP 18; TEMP 36.4; O2SAT 98
[2024-01-22 08:58] VITALS: BP 122/64
[2024-01-22] MEDS: risperiDONE 3 MG TABLET PO ×2 (08:58→21:25)
[2024-01-22] MEDS: cloNIDine HCL 0.1 MG TABLET PO ×2 (08:58→21:25)
[2024-01-22] MEDS: Famotidine 20 MG TABLET PO ×2 (08:58→21:25)
--- NOTE | 2024-01-22 17:03 | HO.PSYCHPN ---
Subjective Subjective Date of Service: 01/22/24 Reason For Visit: psychosis Subjective Notes: Conditional Voluntary Healthcare Proxy: No Guardianship: No Medical Problems Affecting Mental Status: No Interim History: No, I don't mind being here, all of you are very kind to me and I am grateful. I just want my own place. Discussed discharge planning for 01/24. Hoping to work with [employer] to find safe housing that he can bring his son to and have a quiet life a job and peace. Taking meds, tolerating and we are seeing some effects. Pt asks to meet, talking of his future and of his goals. Sx decrease evident today. Medication Compliance: Yes Side effects from medications: No Attending Groups: Intermittent Review of Systems Acute medical concerns: No Review of Systems Review of Systems Yes all other systems are reviewed and are negative Mental Status Exam Mental Status Exam Patient Appearance: Appropriate Patient Orientation: Person, Place, Time and Situation Level of Consciousness: Alert Patient Behavior: Appropriate, Talkative and Good Eye Contact Mood Description: Suspicious Affect Description: Suspicious and Labile Patient Cognition Impaired: No Ability to Follow Directions: Good Speech Pattern: Spontaneous Speech Memory Description: Episodic Impaired Hallucinations: Auditory Delusions: Paranoid Ideation and Present Thought Process: Distracted Thought Content: positive for Circumstantial and positive for Suicidal Ideation (denies) Abnormal Motor Activity Signs and Symptoms: Restlessness Judgement: Fair Diagnostics Vital Signs (24Hr): Vital Signs - 24 hr 01/21/24 19:52 01/21/24 20:00 01/22/24 08:00 Temperature 97.6 F 97.5 F Pulse Rate 75 90 Respiratory Rate 16 18 Blood Pressure 141/66 H 141/66 H 123/85 Pulse Oximetry 97 98 Oxygen Delivery Method Room Air Room Air 01/22/24 08:58 Temperature Pulse Rate Respiratory Rate Blood Pressure 122/64 Pulse Oximetry Oxygen Delivery Method BMI result Body Mass Index 33.9 Labs 01/16/24 14:02 01/18/24 08:11 Medications Medications Current Medications Acetaminophen (Acetaminophen 325 Mg Tablet) 650 mg PO Q6H PRN PRN Reason: Headache/Pain Mild Scale (1-3) Al Hydroxide/Mg Hydroxide (Magnesium Hydrox/Alum Hydrox 30 Ml Oral.Susp) 30 ml PO Q6H PRN PRN Reason: Heartburn/Nausea Clonazepam (Clonazepam 0.5 Mg Tablet) 0.5 mg PO BID [facility] Last Admin: 01/22/24 08:58 Dose: 0.5 mg Clonidine HCl (Clonidine Hcl 0.1 Mg Tablet) 0.1 mg PO BID [facility]; Protocol Last Admin: 01/22/24 08:58 Dose: 0.1 mg Famotidine (Famotidine 20 Mg Tablet) 20 mg PO BID [facility] Last Admin: 01/22/24 08:58 Dose: 20 mg Hydroxyzine HCl (Hydroxyzine Hcl 25 Mg Tablet) 25 mg PO Q6H PRN PRN Reason: Anxiety Last Admin: 01/19/24 16:14 Dose: 25 mg Magnesium Hydroxide (Milk Of Magnesia 30 Ml Oral.Susp) 30 ml PO DAILY PRN PRN Reason: Constipation Risperidone (Risperidone 3 Mg Tablet) 3 mg PO BID [facility] Last Admin: 01/22/24 08:58 Dose: 3 mg Trazodone HCl (Trazodone Hcl 50 Mg Tablet) 50 mg PO BEDTIME MRX1 PRN PRN Reason: Insomnia Last Admin: 01/18/24 20:53 Dose: 50 mg Trazodone HCl (Trazodone Hcl 50 Mg Tablet) 50 mg PO BEDTIME [facility] Last Admin: 01/21/24 19:53 Dose: Not Given Allergies Allergies Allergy/AdvReac Type Severity Reaction Status Date / Time No Known Allergies Allergy Verified 01/16/24 12:04 Assessment & Plan Assessment & Plan (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 He meets criteria for IP LOC. His medications were resumed including Risperdal which I increased to 3 mg b.i.d.. It would be useful to get some collateral information from his family this week. He is on a CV. He is on 15 minute checks. 01/18- will dc sertraline 25mg po daily. add clonazepam 0.5mg po BID. continue risperidone 3mg po BID. Continue clonidine 0.1mg po BID. BP has been consistently high, may need additional BP med. His cholesterol and LDL also high, may benefit from statin. 01/19: Continue tx. 01/20: Continue tx. 01/21: Continue tx. Reason for continued inpatient stay Substantial Risk for: rapid decompensation Time Spent With Patient Time: Total time managing care of this patient today ____ minutes.
[2024-01-22 20:00] VITALS: BP 137/82; PULSE 77; RESP 16; TEMP 36.9; O2SAT 97
[2024-01-22] MEDS: clonazePAM 0.5 MG TABLET PO (21:25)
[2024-01-22] MEDS: traZODone HCL 50 MG TABLET PO (21:25)
--- NOTE | 2024-01-23 08:54 | HO.PSYCHPN ---
Subjective Subjective Date of Service: 01/23/24 Reason For Visit: psychosis Subjective Notes: Conditional Voluntary Healthcare Proxy: No Guardianship: No Medical Problems Affecting Mental Status: No Interim History: Pt working on some research regarding [facility]. Making calls, asking questions. Continue to present with improved mood, affect and a decrease in psychotic symptoms. Compliant with medications. Planning discharge for 01/24. Medication Compliance: Yes Side effects from medications: No Attending Groups: Intermittent Review of Systems Acute medical concerns: No Medical Review of Systems: unchanged Mental Status Exam Mental Status Exam Patient Appearance: Appropriate Patient Orientation: Person, Place, Time and Situation Level of Consciousness: Alert Patient Behavior: Appropriate, Talkative and Good Eye Contact Mood Description: Suspicious Affect Description: Suspicious and Labile Patient Cognition Impaired: No Ability to Follow Directions: Good Speech Pattern: Spontaneous Speech Memory Description: Episodic Impaired Hallucinations: Auditory Delusions: Paranoid Ideation and Present Thought Process: Distracted Thought Content: positive for Circumstantial and positive for Suicidal Ideation (denies) Abnormal Motor Activity Signs and Symptoms: Restlessness Judgement: Fair Diagnostics Vital Signs (24Hr): Vital Signs - 24 hr 01/22/24 08:58 01/22/24 20:00 Temperature 98.4 F Pulse Rate 77 Respiratory Rate 16 Blood Pressure 122/64 137/82 Pulse Oximetry 97 Oxygen Delivery Method Room Air BMI result Body Mass Index 33.9 Labs 01/16/24 14:02 01/18/24 08:11 Medications Medications Current Medications Acetaminophen (Acetaminophen 325 Mg Tablet) 650 mg PO Q6H PRN PRN Reason: Headache/Pain Mild Scale (1-3) Al Hydroxide/Mg Hydroxide (Magnesium Hydrox/Alum Hydrox 30 Ml Oral.Susp) 30 ml PO Q6H PRN PRN Reason: Heartburn/Nausea Clonazepam (Clonazepam 0.5 Mg Tablet) 0.5 mg PO BID [facility] Last Admin: 01/22/24 21:25 Dose: 0.5 mg Clonidine HCl (Clonidine Hcl 0.1 Mg Tablet) 0.1 mg PO BID [facility]; Protocol Last Admin: 01/22/24 21:25 Dose: 0.1 mg Famotidine (Famotidine 20 Mg Tablet) 20 mg PO BID [facility] Last Admin: 01/22/24 21:25 Dose: 20 mg Hydroxyzine HCl (Hydroxyzine Hcl 25 Mg Tablet) 25 mg PO Q6H PRN PRN Reason: Anxiety Last Admin: 01/19/24 16:14 Dose: 25 mg Magnesium Hydroxide (Milk Of Magnesia 30 Ml Oral.Susp) 30 ml PO DAILY PRN PRN Reason: Constipation Risperidone (Risperidone 3 Mg Tablet) 3 mg PO BID [facility] Last Admin: 01/22/24 21:25 Dose: 3 mg Trazodone HCl (Trazodone Hcl 50 Mg Tablet) 50 mg PO BEDTIME MRX1 PRN PRN Reason: Insomnia Last Admin: 01/18/24 20:53 Dose: 50 mg Trazodone HCl (Trazodone Hcl 50 Mg Tablet) 50 mg PO BEDTIME [facility] Last Admin: 01/22/24 21:25 Dose: 50 mg Allergies Allergies Allergy/AdvReac Type Severity Reaction Status Date / Time No Known Allergies Allergy Verified 01/16/24 12:04 Assessment & Plan Assessment & Plan (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 He meets criteria for IP LOC. His medications were resumed including Risperdal which I increased to 3 mg b.i.d.. It would be useful to get some collateral information from his family this week. He is on a CV. He is on 15 minute checks. 01/18- will dc sertraline 25mg po daily. add clonazepam 0.5mg po BID. continue risperidone 3mg po BID. Continue clonidine 0.1mg po BID. BP has been consistently high, may need additional BP med. His cholesterol and LDL also high, may benefit from statin. 01/19: Continue tx. 01/20: Continue tx. 01/21: Continue tx. 01/22: Continue tx. Reason for continued inpatient stay Substantial Risk for: rapid decompensation Time Spent With Patient Time: Total time managing care of this patient today ____ minutes.
[2024-01-23 09:01] VITALS: BP 134/85; PULSE 103; TEMP 36.4; O2SAT 97
[2024-01-23] MEDS: risperiDONE 3 MG TABLET PO ×2 (09:01→20:51)
[2024-01-23] MEDS: Famotidine 20 MG TABLET PO ×2 (09:01→20:51)
[2024-01-23] MEDS: clonazePAM 0.5 MG TABLET PO ×2 (09:01→20:51)
[2024-01-23] MEDS: cloNIDine HCL 0.1 MG TABLET PO ×2 (09:01→20:51)
[2024-01-23 20:00] VITALS: BP 127/78; PULSE 96; RESP 16; TEMP 36.7; O2SAT 94
[2024-01-23] MEDS: traZODone HCL 50 MG TABLET PO (20:53)
[2024-01-24 08:34] VITALS: BP 154/85; PULSE 95; TEMP 36.4; O2SAT 98
[2024-01-24] MEDS: risperiDONE 3 MG TABLET PO ×2 (08:45→21:19)
[2024-01-24] MEDS: Famotidine 20 MG TABLET PO ×2 (08:45→21:19)
[2024-01-24] MEDS: clonazePAM 0.5 MG TABLET PO ×2 (08:45→21:19)
[2024-01-24] MEDS: cloNIDine HCL 0.1 MG TABLET PO ×2 (08:45→21:19)
--- NOTE | 2024-01-24 09:00 | HO.PSYCHPN ---
Subjective Subjective Date of Service: 01/24/24 Reason For Visit: psychosis Subjective Notes: Conditional Voluntary Healthcare Proxy: No Guardianship: No Medical Problems Affecting Mental Status: No Interim History: Pt visable and interactive in milieu. No sx of psychosis Pt focused on finding housing after discharge and he has been working on this and gathering some resources. Review of medicine regime for discharge. Plans discharge for 01/24. Medication Compliance: Yes Side effects from medications: No Attending Groups: Intermittent Review of Systems Acute medical concerns: No Medical Review of Systems: unchanged Review of Systems Review of Systems Yes all other systems are reviewed and are negative Mental Status Exam Mental Status Exam Patient Appearance: Appropriate Patient Orientation: Person, Place, Time and Situation Level of Consciousness: Alert Patient Behavior: Appropriate, Talkative and Good Eye Contact Mood Description: Appropriate Affect Description: Appropriate Patient Cognition Impaired: No Ability to Follow Directions: Good Speech Pattern: Spontaneous Speech Memory Description: Episodic Impaired Hallucinations: None Delusions: Not Present Thought Process: Intact and Goal Oriented Thought Content: positive for Intact, positive for Goal Oriented and positive for Suicidal Ideation (denies) Judgement: Good Diagnostics Vital Signs (24Hr): Vital Signs - 24 hr 01/23/24 09:01 01/23/24 09:01 01/23/24 20:00 Temperature 97.5 F 98.1 F Pulse Rate 103 H 96 Respiratory Rate 16 Blood Pressure 134/85 134/85 127/78 Pulse Oximetry 97 94 Oxygen Delivery Method Room Air Room Air 01/24/24 08:34 Temperature 97.6 F Pulse Rate 95 Respiratory Rate Blood Pressure 154/85 H Pulse Oximetry 98 Oxygen Delivery Method Room Air BMI result Body Mass Index 33.9 Labs 01/16/24 14:02 01/18/24 08:11 Medications Medications Current Medications Acetaminophen (Acetaminophen 325 Mg Tablet) 650 mg PO Q6H PRN PRN Reason: Headache/Pain Mild Scale (1-3) Al Hydroxide/Mg Hydroxide (Magnesium Hydrox/Alum Hydrox 30 Ml Oral.Susp) 30 ml PO Q6H PRN PRN Reason: Heartburn/Nausea Clonazepam (Clonazepam 0.5 Mg Tablet) 0.5 mg PO BID [facility] Last Admin: 01/24/24 08:45 Dose: 0.5 mg Clonidine HCl (Clonidine Hcl 0.1 Mg Tablet) 0.1 mg PO BID [facility]; Protocol Last Admin: 01/24/24 08:45 Dose: 0.1 mg Famotidine (Famotidine 20 Mg Tablet) 20 mg PO BID [facility] Last Admin: 01/24/24 08:45 Dose: 20 mg Hydroxyzine HCl (Hydroxyzine Hcl 25 Mg Tablet) 25 mg PO Q6H PRN PRN Reason: Anxiety Last Admin: 01/19/24 16:14 Dose: 25 mg Magnesium Hydroxide (Milk Of Magnesia 30 Ml Oral.Susp) 30 ml PO DAILY PRN PRN Reason: Constipation Risperidone (Risperidone 3 Mg Tablet) 3 mg PO BID [facility] Last Admin: 01/24/24 08:45 Dose: 3 mg Trazodone HCl (Trazodone Hcl 50 Mg Tablet) 50 mg PO BEDTIME MRX1 PRN PRN Reason: Insomnia Last Admin: 01/18/24 20:53 Dose: 50 mg Trazodone HCl (Trazodone Hcl 50 Mg Tablet) 50 mg PO BEDTIME [facility] Last Admin: 01/23/24 20:53 Dose: 50 mg Allergies Allergies Allergy/AdvReac Type Severity Reaction Status Date / Time No Known Allergies Allergy Verified 01/16/24 12:04 Assessment & Plan Assessment & Plan (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 He meets criteria for IP LOC. His medications were resumed including Risperdal which I increased to 3 mg b.i.d.. It would be useful to get some collateral information from his family this week. He is on a CV. He is on 15 minute checks. 01/18- will dc sertraline 25mg po daily. add clonazepam 0.5mg po BID. continue risperidone 3mg po BID. Continue clonidine 0.1mg po BID. BP has been consistently high, may need additional BP med. His cholesterol and LDL also high, may benefit from statin. 01/19: Continue tx. 01/20: Continue tx. 01/21: Continue tx. 01/22: Continue tx. 01/23: Discharge 01/24. Reason for continued inpatient stay Substantial Risk for: stable for discharge Time Spent With Patient Time: Total time managing care of this patient today ____ minutes.
[2024-01-24 20:00] VITALS: BP 135/91; PULSE 93; RESP 16; TEMP 36.8; O2SAT 98
[2024-01-24 21:19] VITALS: BP 135/91
[2024-01-24] MEDS: traZODone HCL 50 MG TABLET PO (21:20)
[2024-01-25] MEDS: traZODone HCL 50 MG TABLET PO (02:39)
[2024-01-25 09:19] VITALS: BP 113/75
[2024-01-25] MEDS: risperiDONE 3 MG TABLET PO (09:19)
[2024-01-25] MEDS: cloNIDine HCL 0.1 MG TABLET PO (09:19)
[2024-01-25] MEDS: clonazePAM 0.5 MG TABLET PO (09:19)
[2024-01-25] MEDS: Famotidine 20 MG TABLET PO (09:19)
[2024-01-25 10:05] VITALS: BP 113/75; PULSE 93; TEMP 36.4; O2SAT 98
--- NOTE | 2024-02-01 16:10 | PM.PSYDC ---
DS: Providers Provider Date of Service: 01/25/24 Date of admission: 01/17/24 12:58 Date of discharge: 01/25/24 Primary care physician: [facility] Admitting clinician: Yannick Gilbert Attending physician on admission: Yannick Gilbert Attending physician on discharge: Jay Mishra Discharging clinician: Krystal Chance DS: Diagnosis Discharge Diagnosis (1) Disorganized schizophrenia: Status: Acute DS: Medications Discharge Medications Home Medications: Previous Rx's ?Medication ?Instructions ?Recorded clonazepam 0.5 mg tablet 0.5 mg PO BID #14 tabs 01/25/24 clonidine HCl 0.1 mg tablet 0.1 mg PO BID #60 tabs 01/25/24 famotidine 20 mg tablet 20 mg PO BID #60 tabs 01/25/24 risperidone 2 mg tablet (Risperdal) 2 mg PO BID #60 tabs 01/25/24 trazodone 50 mg tablet 50 mg PO BEDTIME #30 tabs 01/25/24 Mental Status Exam Mental Status Exam Patient Appearance: Appropriate Patient Orientation: Person, Place, Time and Situation Level of Consciousness: Alert Patient Behavior: Appropriate, Talkative and Good Eye Contact Mood Description: Appropriate Affect Description: Appropriate Patient Cognition Impaired: No Ability to Follow Directions: Good Speech Pattern: Spontaneous Speech Memory Description: Episodic Impaired Hallucinations: None Delusions: Not Present Thought Process: Intact and Goal Oriented Thought Content: positive for Intact, positive for Goal Oriented and positive for Suicidal Ideation (denies) Judgement: Good DS: Summary Hospital Course Hospital Course: Admission to adult psychiatry for exacerbation of schizophrenia. Pt recently admitted in October 2023 where he refused all treatment and left on a three day notice. During this admission he was willing to accept medication, was more engaged with team, milieu and peers and his family was more supportive in his receiving treatment. He was started on Risperdal, Clonidine, Klonopin and Trazodone, recompensated and is able to return to his home with family support. Status at Discharge Functional status at discharge: independent ambulation Overall status at discharge: patient is back to baseline Time Spent with Patient Time attestation: Total time managing care of this patient today ____ minutes. Time spent: Less than 30 minutes Discharge Plan Discharge Anticipated Discharge Date/Time: 01/25/24 12:00 Patient Disposition: Home, Self-Care Discharge Diagnosis: Schizophrenia Referrals: [facility]: Kosta (therapist) [Other] - 02/02/24 9:00 am (Hospital Discharge appointment for therapy Appointment is in clinic ) [facility]: Odilia Gillespie (psychiatry) [Other] - 01/26/24 10:00 am (Hospital discharge appointment with psychiatric medication provider Appointment in person at [facility] in [place].) [place] [Primary Care Provider] - 1 Week Discharge Medications: New trazodone 50 mg Tablet 50 mg PO BEDTIME Qty: 30 0RF clonazepam 0.5 mg Tablet 0.5 mg PO BID Qty: 14 4RF famotidine 20 mg Tablet 20 mg PO BID Qty: 60 0RF Continued clonidine HCl 0.1 mg Tablet 0.1 mg PO BID Qty: 60 0RF risperidone [Risperdal] 2 mg Tablet 2 mg PO BID Qty: 60 0RF Discontinued sertraline 25 mg Tablet 25 mg PO DAILY trazodone 50 mg PO BEDTIME Discharge Orders: Discharge Order (Routine); Ordered 01/25/24 Ordered By: Krystal Chance Diet: Advance to usual diet Activity on Discharge: As tolerated Stand Alone Forms: Patient Portal Discharge page, Community Support Print Language: Moroccan Care Plan Goals: Mood and Behavioral Stabilization Health Concerns: Mood and Behavioral Stabilization Plan of Treatment: Attend scheduled appointments Take medications as directed Assessment: Shaka SI/HI/AH/VH Scheduled discharge Discharge Date/Time: 01/25/24 11:00
== END 2024-01-25 11:00 | disposition home or self-care (01) | DRG 750 ==
LOC: HO.ED 01-17 09:59 → HO.PM5 01-17 13:33
PROVIDERS: Physician Assistant; Physician Assistant Medical; Admitting Provider Psychiatry & Neurology Psychiatry; Emergency Provider Emergency Medicine; Visit Provider Clinical Nurse Specialist Psychiatric/Mental Health, Adult
DX: F20.1 Disorganized schizophrenia (principal); Z20.822 Contact with and (suspected) exposure to COVID-19; Z79.899 Other long term (current) drug therapy
CPT/HCPCS: 0241U; 36415; 80053; 80061; 80143; 80179; 80307; 81003; 83690; 83735; 85025; 99285; S9485

== ENCOUNTER → 2024-01-17 12:58 | Outpatient (BNV) | payer OTHER, SELFPAY | PROVIDERS: Admitting Provider Psychiatry & Neurology Psychiatry; Emergency Provider Emergency Medicine; Visit Provider Psychiatry & Neurology Psychiatry | DX: F20.1 Disorganized schizophrenia (principal) | CPT/HCPCS: 99231; 99232 ==